=== PATIENT | female | born 1990 | race African-American/Black ===

== ENCOUNTER 2020-11-07 18:58 | Emergency (ER) | payer OTHER, SELFPAY ==
[2020-11-07 19:17] VITALS: BP 124/67; PULSE 72; RESP 18; TEMP 36.5; O2SAT 100
--- NOTE | 2020-11-07 19:18 | ED.EAR ---
HPI - Ear Problem General Chief complaint: Ear Stated complaint: Ear inf Time Seen by Provider: 11/07/20 19:18 Source: patient and RN notes reviewed Mode of arrival: ambulatory Limitations: no limitations History of Present Illness HPI Narrative: 30-year-old female presents to the [facility] with complaints of left ear pain since this am. Has not taken anything for symptoms. No nausea vomiting or diarrhea. No headaches. Related Data Home Medications Medication Instructions Recorded Confirmed citalopram 20 mg tablet 20 mg PO DAILY 05/12/19 11/07/20 Allergies Allergy/AdvReac Type Severity Reaction Status Date / Time No Known Allergies Allergy Unverified 05/10/17 17:11 Review of Systems Review of Systems: All systems reviewed & are unremarkable except as noted in HPI and below Constitutional: Constitutional: Reports no additional constitutional complaints, Denies chills and Denies fever(s) Eyes: Eyes: Reports no additional eye complaints and Denies change in vision ENT: Reports system reviewed and no additional complaints, except as documented, Reports as per HPI and Denies sore throat Comments: left ear pain Cardiovascular: Cardiovascular: Reports no additional cardiovascular complaints Respiratory: Respiratory: Reports no additional respiratory complaints Genitourinary: Genitourinary: Reports no additional female genitourinary complaints Musculoskeletal: Musculoskeletal: Reports no additional musculoskeletal complaints Integumentary/Breasts: Skin/Breast: Reports system reviewed and no additional complaints, except as docu Neurologic: Reports system reviewed and no additional complaints, except as documented Psychiatric: Psychiatric: Reports no additional psychiatric complaints Allergic/Immunologic: Allergic/Immunologic: Reports no additional allergic/immunologic complaints [facility] [place] Past Medical History Medical History Allergies Anxiety GERD (gastroesophageal reflux disease) History of frequent headaches Surgical History Surgical History Hx of removal of ovary Family History Family History Mother Depression Anxiety Father Hypertension Aneurysm Grandparent Breast cancer Sibling Bipolar affective disorder Anxiety Social History Social History Smoking status: Never smoker Alcohol intake: never Substance use: never Comments At the time of my signature, I reviewed and agree with the nursing past medical, surgical, social, and family history. There is no relevant family history pertinent to the patient complaint. Exam Const: General: healthy appearing, no acute distress and alert Nutritional Appearance: well nourished and obese Orientation/consciousness: patient oriented x3 Limitations: no limitations HENMT: Head: normal to inspection Ears: external ears abnormal, Abnormal EAC present erythema on the left and EAC tenderness on the left; no otic discharge and TM abnormal with fluid behind the TM on the left Face and sinus: sinuses nontender Mouth: Yes moist mucous membranes Eyes: Conjunctivae: conjunctivae normal Pupils: Equal, round and reactive pupils present Neck: Neck: normal visual inspection, no lymphadenopathy and no meningeal signs Chest: Chest palpation & inspection: normal inspection of the chest Resp: Effort & Inspection: normal respiratory effort and no use of accessory muscles Auscultation: clear to auscultation bilaterally, no crackles, no rales, no rhonchi and no wheezes Cardio: Rate: regular rate Rhythm: regular rhythm : General: Yes no CVA tenderness Back/Spine/Pelvis: Back: no CVA tenderness Skin: General skin exam: normal color Rashes: no rashes Wounds: no wounds Neuro: General: patient oriented x3, moves all extremities, no meningeal signs and no
== END 2020-11-07 19:28 | disposition home or self-care (01) ==
PROVIDERS: Emergency Provider Nurse Practitioner; PCP Family Medicine
DX: H60.502 Unspecified acute noninfective otitis externa, left ear (principal); T78.40XA Allergy, unspecified, initial encounter
CPT/HCPCS: 99213; G0463

== ENCOUNTER 2021-02-23 18:26 | Emergency (ER) | payer OTHER, SELFPAY ==
--- NOTE | 2021-02-23 18:31 | ED.URI ---
HPI - URI/Sore Throat General Chief Complaint: Upper Respiratory Infection Stated Complaint: Sinus Congestion/Sore Throat Time Seen by Provider: 02/23/21 18:32 Source: patient and RN notes reviewed History of Present Illness HPI Narrative: Patient is a 30-year-old female who presents the urgent care with complaints of sinus congestion, body aches and sore throat. States that symptoms started Sunday night. Patient states that she has been taking ibuprofen, Tylenol and Sudafed without much relief. Patient has been Covid vaccinated and denies of any recent exposures to Covid, flu or strep. Patient denies of any fever, chills, nausea or vomiting. No other acute complaints. No acute distress noted. Patient aware of the plan of care. Some parts of this dictation were generated by voice recognition software and may contain typographical and/or grammatical inaccuracies. Related Data Home Medications Medication Instructions Recorded Confirmed citalopram 20 mg tablet 20 mg PO DAILY 05/12/19 11/07/20 Allergies Allergy/AdvReac Type Severity Reaction Status Date / Time No Known Allergies Allergy Unverified 02/23/21 18:34 Review of Systems Review of Systems: CONSTITUTIONAL: Denies fever, chills, or sweats. EYES: Denies visual changes, redness, or discharge. ENT: Reports of postnasal drainage, sinus congestion and sore throat CARDIOVASCULAR: Denies chest pain, palpitations, or edema. RESPIRATORY: Denies cough or dyspnea. GASTROINTESTINAL: Denies abdominal pain, nausea, vomiting, or diarrhea. GENITOURINARY: Denies dysuria or hematuria. SKIN: Denies rash or itching. MUSCULOSKELETAL: Denies back pain, joint pain. Reports body aches NEUROLOGIC: Denies headache, numbness, or weakness. All other systems reviewed are negative, except as documented in HPI. [facility] Past Medical History Medical History Allergies Anxiety GERD (gastroesophageal reflux disease) History of frequent headaches Surgical History Surgical History Hx of removal of ovary Family History Family History Mother Depression Anxiety Father Hypertension Aneurysm Grandparent Breast cancer Sibling Bipolar affective disorder Anxiety Social History Social History (Reviewed 11/07/20 @ 19:25 by Tatiana Yen Smoking status: Never smoker Alcohol intake: never Substance use: never Comments At the time of my signature, I reviewed and agree with the nursing past medical, surgical, social, and family history. There is no relevant family history pertinent to the patient complaint. Exam Narrative: GENERAL: This is a well-nourished, well-developed patient, in no apparent distress. HEAD: normocephalic, atraumatic. EYES: PERRL. Sclera clear/white. Vision is grossly intact. Mild bilateral injected conjunctiva. EARS: External ears normal, auditory canals clear and without drainage, TMs normal without perforation. Hearing grossly intact. NOSE: External nose normal with no obvious nasal discharge, nares without redness, no rhinorrhea. THROAT: Mucous membranes moist. Mild erythema to posterior pharynx with moderate postnasal drainage. NECK: Neck supple, non-tender without lymphadenopathy CARDIOVASCULAR: Regular rate and rhythm without murmurs, gallops, or rubs. RESPIRATORY: Clear to auscultation. Breath sounds equal bilaterally. No wheezes, rales, or rhonchi. SKIN: warm, intact with no suspicious lesions or rash, good texture and turgor. NEURO: awake, alert, and oriented to person, place and time. There were no obvious focal neurologic abnormalities. EXTREMITIES: No clubbing, cyanosis, or edema. Course Course Level of Care: Express Care Visit Vital Signs Vital signs: Vital Signs Temperature 99.3 F 02/23/21 18:36 Pulse Rate 73 02/23/21 18:36 Respiratory Rate 20 02/23/21 18:36 Blood Pressure 146/
[2021-02-23 18:36] VITALS: BP 146/71; PULSE 73; RESP 20; TEMP 37.4; O2SAT 100
[2021-02-25 22:11] LABS: SARS-CoV-2 RNA PCR Negative
== END 2021-02-23 19:05 | disposition home or self-care (01) ==
PROVIDERS: Emergency Provider Nurse Practitioner Family; PCP Family Medicine
DX: J06.9 Acute upper respiratory infection, unspecified (principal); J02.9 Acute pharyngitis, unspecified; Z20.822 Contact with and (suspected) exposure to COVID-19; F41.9 Anxiety disorder, unspecified; K21.9 Gastro-esophageal reflux disease without esophagitis
CPT/HCPCS: 87081; 87880; 99213; C9803; G0463; U0003; U0005

== ENCOUNTER 2021-05-19 08:05 | Emergency (ER) | payer OTHER, SELFPAY ==
--- NOTE | 2021-05-19 08:16 | ED.URI ---
HPI - URI/Sore Throat General Chief Complaint: Upper Respiratory Infection Stated Complaint: Sore Throat Time Seen by Provider: 05/19/21 08:16 Source: patient and RN notes reviewed Mode of arrival: ambulatory Limitations: no limitations History of Present Illness HPI Narrative: 30-year-old female presented for complaint of sore throat for 2 days, worse yesterday. Endorses sinus congestion for 10 days. Endorses cough and postnasal drainage. She denies shortness of breath or wheezing, nausea, vomiting, diarrhea, fever or chills. Denies sick contacts. She is taking Mucinex, Sudafed, and daily Zyrtec. MD elicited complaint: cough Related Data Home Medications Medication Instructions Recorded Confirmed citalopram 20 mg tablet 20 mg PO DAILY 05/12/19 05/19/21 Allergies Allergy/AdvReac Type Severity Reaction Status Date / Time No Known Allergies Allergy Unverified 05/19/21 08:20 Review of Systems Review of Systems: CONSTITUTIONAL: denies malaise, chills, sweats, fever EYES: Denies visual changes, redness, or discharge ENT: Reports rhinorrhea, congestion, sinus pain, otalgia, sore throat CARDIOVASCULAR: Denies chest pain, palpitations, edema RESPIRATORY: Reports cough, post nasal drainage. Denies dyspnea GASTROINTESTINAL: Denies abdominal pain, nausea, vomiting, diarrhea SKIN: Denies rash or itching MUSCULOSKELETAL: Denies myalgia NEUROLOGIC: Denies headache PMFSH Past Medical History Medical History Allergies Anxiety GERD (gastroesophageal reflux disease) History of frequent headaches Surgical History Surgical History Hx of removal of ovary Family History Family History Mother Depression Anxiety Father Hypertension Aneurysm Grandparent Breast cancer Sibling Bipolar affective disorder Anxiety Social History Social History Smoking status: Never smoker Alcohol intake: never Substance use: never Exam Narrative: GENERAL: Ill-appearing, nontoxic HEAD: Normocephalic EYES: conjunctivae clear ENT: Mucous membranes moist. TM pearly valencia with dull light reflex bilaterally; no tragal tenderness. Oropharynx erythematous without lesions or exudate, no drooling, no hoarseness, no trismus, uvula midline. No tripod positioning, muffled voice, soft palate or pharyngeal wall bulging NECK: Supple. No lymphadenopathy CHEST: Clear to auscultation, breath sounds equal. No wheezing, rhonchi, rales, or stridor. No respiratory distress, speaks in full sentences. HEART: Regular rate and rhythm. No murmur heard. SKIN: Warm, dry, no rash. NEURO: Alert and oriented x3. PSYCH: Normal mood and affect Course Course Emergency Course: Patient is aware of diagnosis, understands and agrees to treatment plan. Anticipatory guidance given. Patient agrees to follow-up as directed and is aware of reasons to seek care at the emergency department. Portions of this record may have been created with voice recognition software Level of Care: Express Care Visit Vital Signs Vital signs: Vital Signs Temperature 98.0 F 05/19/21 08:21 Pulse Rate 87 05/19/21 08:21 Respiratory Rate 18 05/19/21 08:21 Blood Pressure 156/92 H 05/19/21 08:21 Pulse Oximetry 100 05/19/21 08:21 Temperature 98.0 F 05/19/21 08:21 Pulse Rate 87 05/19/21 08:21 Respiratory Rate 18 05/19/21 08:21 Blood Pressure 156/92 H 05/19/21 08:21 Pulse Oximetry 100 05/19/21 08:21 reviewed MDM - URI/Sore Throat MDM Narrative Medical decision making narrative: strep negative Sx c/w sinusitis, given 10 day hx of symptoms abx prescribed. she is appropriate for outpt treatment and f/u. Differential Diagnosis Differential diagnosis: Likely upper respiratory infection, sinusitis and viral infection Lab Data
[2021-05-19 08:21] VITALS: BP 156/92; PULSE 87; RESP 18; TEMP 36.7; O2SAT 100
== END 2021-05-19 08:38 | disposition home or self-care (01) ==
PROVIDERS: Emergency Provider Nurse Practitioner Family; PCP Family Medicine
DX: J06.9 Acute upper respiratory infection, unspecified (principal); K21.9 Gastro-esophageal reflux disease without esophagitis; F41.9 Anxiety disorder, unspecified
CPT/HCPCS: 87081; 87880; 99213; G0463

== ENCOUNTER 2022-11-13 11:21 | Emergency (ER) | payer OTHER, SELFPAY ==
[2022-11-13 11:27] VITALS: BP 126/81; PULSE 70; RESP 20; TEMP 36.7; O2SAT 100
--- NOTE | 2022-11-13 11:47 | ED.GENADULT ---
HPI - General Adult General Chief complaint: Ear Stated complaint: ears Time Seen by Provider: 11/13/22 11:47 Source: patient, RN notes reviewed and old records reviewed Mode of arrival: ambulatory Limitations: no limitations History of Present Illness HPI narrative: 32-year-old female presents to the [facility] with complaints of bilateral ear pain. States that a week ago started in her right ear. On Sunday the left ear started feeling painful, bilateral muffling, pressure and pain. Denies any sinus congestion. Has been taking an allergy medication every day, Benadryl, Tylenol and ibuprofen. Onset (ago): week(s) (1) Related Data Home Medications Medication Instructions Recorded Confirmed venlafaxine 25 mg tablet 25 mg PO BID 11/13/22 11/13/22 Allergies Allergy/AdvReac Type Severity Reaction Status Date / Time No Known Allergies Allergy Verified 11/13/22 11:35 Review of Systems Review of Systems: All systems reviewed & are unremarkable except as noted in HPI and below Constitutional: Constitutional: Reports no additional constitutional complaints Eyes: Eyes: Reports no additional eye complaints ENT: Reports as per HPI Cardiovascular: Cardiovascular: Reports no additional cardiovascular complaints, Denies chest pain and Denies dyspnea Respiratory: Respiratory: Reports no additional respiratory complaints, Denies chest congestion, Denies cough and Denies dyspnea Gastrointestinal: Gastrointestinal: Reports no additional gastrointestinal complaints, Denies abdominal pain, Denies nausea and Denies vomiting Musculoskeletal: Musculoskeletal: Reports no additional musculoskeletal complaints Integumentary/Breasts: Skin/Breast: Reports system reviewed and no additional complaints, except as docu Neurologic: Reports system reviewed and no additional complaints, except as documented Psychiatric: Psychiatric: Reports no additional psychiatric complaints Allergic/Immunologic: Allergic/Immunologic: Reports no additional allergic/immunologic complaints [facility] Past Medical History Medical History Allergies Anxiety GERD (gastroesophageal reflux disease) History of frequent headaches Surgical History Surgical History Hx of removal of ovary Family History Family History Mother Depression Anxiety Father Hypertension Aneurysm Grandparent Breast cancer Sibling Bipolar affective disorder Anxiety Social History Social History Smoking status: Never smoker Alcohol intake: never Substance use: never Comments At the time of my signature, I reviewed and agree with the nursing past medical, surgical, social, and family history. There is no relevant family history pertinent to the patient complaint. Exam Const: General: cooperative, healthy appearing, comfortable, no acute distress, well developed, alert and well nourished Nutritional Appearance: well nourished Orientation/consciousness: patient oriented x3 Limitations: no limitations HENMT: Head: normal to inspection Ears: hearing grossly normal bilaterally, external ears normal, TM normal on the right, Abnormal EAC present erythema bilateral and edema bilateral and TM abnormal bulging and erythematous on the right Face/Nose/Sinus: Normal external nose present, Normal nares present, Normal nasal mucous membranes and turbinates present, normal facial exam and face symmetric Face and sinus: normal facial exam and face symmetric Mouth: Yes Normal oral and palatal mucosa present, Yes lip normal and Yes moist mucous membranes Throat: posterior oropharynx normal, uvula midline and postnasal drainage Eyes: General: appearance normal, both eyes and all related structures Alignment and Position: alignment normal Periorbital: periorbital f
== END 2022-11-13 12:00 | disposition home or self-care (01) ==
PROVIDERS: Emergency Provider Nurse Practitioner; PCP Family Medicine
DX: H66.91 Otitis media, unspecified, right ear (principal); H60.503 Unspecified acute noninfective otitis externa, bilateral
CPT/HCPCS: 99213; G0463

== ENCOUNTER 2023-09-11 13:54 | Emergency (ER) | payer OTHER, SELFPAY ==
--- NOTE | ~2023-09-11 | XR_ITS ---
XR abdomen/kub 1V 09/11/2023 14:44 Indication: Flank pain Procedure: KUB Comparison: No prior studies for comparison. Findings: There are bilateral renal stones measuring 3 mm or less. Bowel pattern is nonobstructive. M oderate colonic fecal loading. No acute osseous abnormality. Impression: 1: Bilateral nephrolithiasis. Reviewed, dictated and finalized at location B. Impression: 1: Bilateral nephrolithiasis.
--- NOTE | 2023-09-11 13:58 | ED.GENADULT ---
HPI - General Adult General Chief complaint: Urogenital-Female Stated complaint: Lower Abdo and back pain Time Seen by Provider: 09/11/23 14:30 Source: patient and RN notes reviewed Mode of arrival: ambulatory Limitations: no limitations History of Present Illness HPI narrative: 32-year-old female presents with concern for to 3 day history of left low back and abdomen pain. She reports she may have a UTI, she noticed some hematuria while wiping. She reports mild nausea without vomiting. She denies diarrhea. She reports pain is worse when she moves certain ways, however she reports the pain is not similar to generalized low back pain that she gets. She denies fever. She denies chance of MD complaint: Low back pain Related Data Home Medications Medication Instructions Recorded Confirmed lamotrigine 25 mg tablet 50 mg PO DAILY 09/11/23 09/11/23 venlafaxine 75 mg capsule,extended 150 mg PO DAILY 09/11/23 09/11/23 release 24 hr Allergies Allergy/AdvReac Type Severity Reaction Status Date / Time No Known Allergies Allergy Verified 09/11/23 14:06 Review of Systems Review of Systems: CONSTITUTIONAL: Denies malaise, chills, sweats, or fever. CARDIOVASCULAR: Denies chest pain, palpitations, or edema. RESPIRATORY: Denies cough or dyspnea. GASTROINTESTINAL: Denies abdominal pain, vomiting, diarrhea. Reports mild nausea GENITOURINARY: Denies dysuria, frequency, urgency, suprapubic pressure. Reports left flank pain, hematuria. SKIN: Denies rash or itching. MUSCULOSKELETAL: Reports left low back pain. Denies myalgia. All systems reviewed & are unremarkable except as noted in HPI and below [facility] Past Medical History Medical History Allergies Anxiety GERD (gastroesophageal reflux disease) History of frequent headaches Surgical History Surgical History Hx of removal of ovary Family History Family History Mother Depression Anxiety Father Hypertension Aneurysm Grandparent Breast cancer Sibling Bipolar affective disorder Anxiety Social History Social History Smoking status: Never smoker Alcohol intake: never Substance use: never Comments At time of signature, agree with nursing past medical, surgical, social and family history. There is no relevant family history pertinent to the presenting complaint Exam Narrative: GENERAL: Well-appearing, well-nourished, and in no acute distress. HEAD: Normocephalic. EYES: PERRLA, conjunctivae clear. NECK: Supple. No lymphadenopathy CHEST: Clear to auscultation. No respiratory distress. HEART: Regular rate and rhythm. ABDOMEN: Soft, nontender upon palpation, nondistended, normal active bowel sounds, no palpable or pulsatile masses, no guarding. No CVA tenderness SKIN: Warm, dry, no rash. NEURO: Alert and oriented x3. PSYCH: Normal mood and affect Course Course Emergency Course: Patient is aware of diagnosis, understands and agrees to treatment plan. Anticipatory guidance given. Patient agrees to follow-up as directed and is aware of reasons to seek care at the emergency department. Portions of this record may have been created with voice recognition software Level of Care: Express Care Visit Vital Signs Vital signs: Reviewed. Medical Decision Making MDM Narrative Medical decision making narrative: I evaluated this patient in the express care. History is obtained from patient who is an independent historian and physical exam was performed.? Available medical records were reviewed. ? Exam findings and relevant testing show no acute concerns or changes; patient is non-toxic appearing and is in no distress. ? Differential diagnosis and treatment plan were discussed with the patient. Patient agrees with dis
[2023-09-11 14:04] VITALS: BP 134/75; PULSE 89; RESP 20; TEMP 36.6; O2SAT 100
[2023-09-11 14:23] LABS: EDUAAPPEAR Clear; EDUABILI Negative; EDUABLOOD Trace; EDUACOLOR1 Yellow; EDUAGLUCOSE Negative; EDUAKETONE Negative; EDUALEUKO Negative; EDUANITRATE Negative; EDUAPROTEIN Negative; EDUASPGRAVITY 1.015; EDUAUROBILI 0.2
== END 2023-09-11 15:15 | disposition home or self-care (01) ==
PROVIDERS: Emergency Provider Nurse Practitioner
DX: N20.0 Calculus of kidney (principal); K21.9 Gastro-esophageal reflux disease without esophagitis; F41.9 Anxiety disorder, unspecified
CPT/HCPCS: 74018; 81003; 87086; 87088; 99213; G0463

== ENCOUNTER 2023-10-13 09:55 | Emergency (ER) | payer OTHER, SELFPAY ==
--- NOTE | ~2023-10-13 | XR_ITS ---
EXAMINATION: XR abdomen/kub 1V DATE: 10/13/2023 10:53 INDICATION: Kidney stones. TECHNIQUE: A supine view of the abdomen on 4 radiographs was obtained. COMPARISON: Abdomen radiographs 09/11/2023 FINDINGS: There are no dilated loops of bowel. There is in the pelvis. There are approximately 4 ston es in left kidney measuring up to 3 mm. There is a 3 mm stone in right kidney. IMPRESSION: 1. Bilateral kidney stones. Reviewed, dictated and finalized at location A. IMPRESSION: 1. Bilateral kidney stones.
[2023-10-13 10:00] VITALS: BP 124/74; PULSE 97; RESP 18; TEMP 36.7; O2SAT 99
--- NOTE | 2023-10-13 10:20 | ED.FEMALEGU ---
HPI - Female Genitourinary General Chief complaint: Urogenital-Female Stated complaint: Poss kidney stone Time Seen by Provider: 10/13/23 10:20 Source: patient, RN notes reviewed and old records reviewed Mode of arrival: ambulatory Limitations: no limitations History of Present Illness HPI Narrative: 33 year old female presents to [facility] care with complaints of left flank pain which began yesterday. Patient reports that she was seen in the clinic one month ago and diagnosed with kidney stones which were found on KUB (x-ray). Patient reports that around the 23 of September she had episode of severe right flank pain and thought she had passed a stone and then pain resolved. Patient reports no fevers or any burning or pain with urination., denies any abdominal pain,fevers or any nausea or vomiting.Patient reports that she did not follow up with a urologist after last visit. MD elicited complaint: UTI and other (left flank pain) Pertinent past history: other (kidney stone noted on X-ray/KUB 09/11/2023) Onset (ago): day(s) (increased pain since yesterday) Location of symptoms: flank (left) Severity: severe Severity scale (1-10): 8 Treatment prior to arrival: none Related Data Home Medications Medication Instructions Recorded Confirmed lamotrigine 25 mg tablet 50 mg PO DAILY 09/11/23 10/13/23 venlafaxine 75 mg capsule,extended 150 mg PO DAILY 09/11/23 10/13/23 release 24 hr Allergies Allergy/AdvReac Type Severity Reaction Status Date / Time No Known Allergies Allergy Verified 10/13/23 10:16 Review of Systems Review of Systems: CONSTITUTIONAL: Denies fever, chills, or sweats. CARDIOVASCULAR: Denies chest pain, palpitations, or edema. RESPIRATORY: Denies cough or dyspnea. GASTROINTESTINAL: Denies abdominal pain, nausea, vomiting, or diarrhea. GENITOURINARY: Reports no dysuria, frequency, urgency.Reports left flank pain , no visible hematuria. SKIN: Denies rash or itching. MUSCULOSKELETAL: Denies back pain or myalgia. Reports left CVA pain NEUROLOGIC: Denies headache All systems reviewed & are unremarkable except as noted in HPI and below PMFSH Past Medical History Medical History Allergies Anxiety GERD (gastroesophageal reflux disease) History of frequent headaches Nephrolithiasis Surgical History Surgical History Hx of removal of ovary Family History Family History Mother Depression Anxiety Father Hypertension Aneurysm Grandparent Breast cancer Sibling Bipolar affective disorder Anxiety Social History Social History Smoking status: Never smoker Alcohol intake: never Substance use: never Comments At time of signature, agree with nursing past medical, surgical, social and family history. There is no relevant family history pertinent to the presenting complaint Exam Narrative: GENERAL: Well-appearing, well-nourished, and in no acute distress. HEAD: Normocephalic, atraumatic. NECK: Supple.no lymphadenopathy CHEST: Clear to auscultation. No respiratory distress.SAO2 99% on room air HEART: Regular rate and rhythm. No murmur heard. Normal peripheral pulses. ABDOMEN: Soft, nontender, nondistended, normal active bowel sounds. left CVA tenderness EXTREMITIES: Normal range of motion. No edema. SKIN: Warm, dry, no rash. NEURO: No focal deficits. Alert and oriented x3. Course Course Emergency Course: Patient is aware of diagnosis, understands and agrees to treatment plan.? Anticipatory guidance given.? Patient agrees to follow-up as directed and is aware of reasons to seek care at the emergency department. Portions of this record may have been created with voice recognition software Level of Care: Express Care Visit Vital Signs Vital signs: Vital Signs Te
[2023-10-13 10:27] LABS: EDUAAPPEAR Clear; EDUABILI Negative; EDUABLOOD 2+; EDUACOLOR1 Yellow; EDUAGLUCOSE Negative; EDUAKETONE Negative; EDUALEUKO Negative; EDUANITRATE Negative; EDUAPH 6.5; EDUAPROTEIN Negative; EDUAUROBILI 0.2
[2023-10-13 11:03] LABS: BEDSIDEPREGUCG Negative
== END 2023-10-13 11:45 | disposition home or self-care (01) ==
PROVIDERS: Emergency Provider Registered Nurse
DX: N20.0 Calculus of kidney (principal); K21.9 Gastro-esophageal reflux disease without esophagitis; F41.9 Anxiety disorder, unspecified
CPT/HCPCS: 74018; 81003; 81025; 87086; 99213; G0463

== ENCOUNTER 2024-04-01 14:46 | Emergency (ER) | payer OTHER, SELFPAY ==
[2024-04-01 14:51] VITALS: BP 134/62; PULSE 135; RESP 28; TEMP 37; O2SAT 99
--- NOTE | 2024-04-01 14:53 | ED.URI ---
HPI - URI/Sore Throat General Chief Complaint: Upper Respiratory Infection Stated Complaint: Shortness of Breath/Cough Time Seen by Provider: 04/01/24 15:07 Source: patient and RN notes reviewed Mode of arrival: ambulatory Limitations: no limitations History of Present Illness HPI Narrative: 33-year-old female who is 24 weeks presents with concern for dry cough, body aches, feeling of not being able to catch her breath. Reports symptoms started yesterday. She denies any chest pain. MD elicited complaint: cough Related Data Home Medications ?Medication ?Instructions ?Recorded ?Confirmed ?Last Taken ?Type lamotrigine 25 mg tablet 50 mg PO DAILY 09/11/23 04/01/24 Unknown History venlafaxine 75 mg capsule,extended 150 mg PO DAILY 09/11/23 04/01/24 Unknown History release 24 hr 04/01/24 Unknown History Allergies Allergy/AdvReac Type Severity Reaction Status Date / Time No Known Allergies Allergy Verified 04/01/24 14:47 Review of Systems Review of Systems: CONSTITUTIONAL: Reports malaise. Denies chills, sweats, fever EYES: Denies visual changes, redness, or discharge ENT: Denies rhinorrhea, congestion, sinus pain, otalgia, sore throat CARDIOVASCULAR: Denies chest pain, palpitations, edema RESPIRATORY: Reports cough, feeling of not really catch her breath during exertion. Denies dyspnea GASTROINTESTINAL: Denies abdominal pain, nausea, vomiting, diarrhea SKIN: Denies rash or itching MUSCULOSKELETAL: Reports myalgia NEUROLOGIC: Denies headache PMFSH Past Medical History Medical History Allergies Anxiety GERD (gastroesophageal reflux disease) History of frequent headaches Nephrolithiasis Surgical History Surgical History Hx of removal of ovary Family History Family History Mother Depression Anxiety Father Hypertension Aneurysm Grandparent Breast cancer Sibling Bipolar affective disorder Anxiety Social History Social History Smoking status: Never smoker Alcohol intake: never Substance use: never Exam Narrative: GENERAL: Nontoxic-appearing, well-nourished, and in no acute distress. HEAD: Normocephalic EYES: PERRLA, conjunctivae clear ENT: Nares clear. Mucous membranes moist. TM pearly valencia with sharp light reflex bilaterally; no tragal tenderness. Oropharynx erythematous without lesions. Tonsils enlarged and without exudate, no drooling, no hoarseness, no trismus, uvula midline. NECK: Supple. No lymphadenopathy CHEST: Clear to auscultation, breath sounds equal. No wheezing, rhonchi, rales, or stridor. No respiratory distress, speaks in full sentences. HEART: Regular rate and rhythm. No murmur heard. SKIN: Warm, dry, no rash. NEURO: Alert and oriented x3. PSYCH: Normal mood and affect Course Course Emergency Course: Patient is aware of diagnosis, understands and agrees to treatment plan. Anticipatory guidance given. Patient agrees to follow-up as directed and is aware of reasons to seek care at the emergency department. Portions of this record may have been created with voice recognition software Level of Care: Express Care Visit Vital Signs Vital signs: reviewed MDM - URI/Sore Throat MDM Narrative Medical decision making narrative: Differential diagnosis considered: Dumont virus, strep pharyngitis, allergic rhinitis, upper respiratory tract infection, sinusitis, rhinosinusitis, nasopharyngitis. viral pharyngitis, otitis media, otitis externa, pneumonia, bronchitis, viral cough syndrome, viral syndrome, and influenza. Exam findings show no acute concerns or changes; patient is non-toxic appearing and is in no distress. Patient is appropriate for outpatient treatment and follow-up. Differential Diagnosis Differential diagnosis: Likely upper respiratory infection, sinusitis and viral infection Lab Data Attestation: I reviewed the patient's lab results. Discharge Plan Discharge Clinical Impression: Upper respiratory infection Patient Disposition: Home, Self-Care Condition: Stable Instructions: How to Use a Metered-Dose Inhaler (ED) Additional Instructions: Viral illness may last between 7-21 days; antibiotics do not cure viral illness and are NOT recommended at this time. Use inhaler as needed for cough, wheezing, shortness of breath or chest tightness. Also, recommend symptomatic treatment includes: rest, fluids, and increase humidity of the air at home. Recommend Acetaminophen as directed on the bottle to reduce fever, pain, headache. Avoid smoking/second-hand smoke. Please schedule a follow-up visit with your personal physician for further evaluation and treatment within 3-5days. If your symptoms persist, change or worsen significantly before you can contact your personal physician then please, without delay, go to the emergency department for further evaluation. Patient Language: Lithuanian Prescriptions: New albuterol sulfate 90 mcg/actuation HFA aerosol inhaler 2 puff INHALATION QID PRN (Reason: shortness of breath or wheezing) Qty: 8.5 0RF No Action lamotrigine 25 mg tablet 50 mg PO DAILY venlafaxine 75 mg capsule,extended release 24hr 150 mg PO DAILY Follow-up/Referrals: PHYSICIAN NOT ON STAFF,NONSTAFF [Primary Care Provider] - Stand Alone Forms: Work/School Release IP Time of Disposition: 15:31
[2024-04-01 15:23] LABS: EDCOVIDSCREEN Negative (Negative); EDINFLUASCREEN Negative (Negative); EDINFLUBSCREEN Negative (Negative)
--- OUTSIDE RECORDS SUMMARY | 2024-04-01 15:27 | XMS_ITS | Referral Summary ---
Author Organization [facility] Address [address] [place] [address] Care Team Providers Care Head Sampler Name Role Phone Marcy Ho DO Primary Care Provider [phone] Encounters Date Type Department Care Team Description 04/01/2024 11:20 AM SCENIC DESIGNER Office Visit [facility] Maternal- Medicine [address] [place] [address] Outpatient Health 7th Floor [address] [place] [address] Anxiety and depression (Primary Dx); BMI 53; Dichorionic diamniotic twin , antepartum; History of pulmonary hypertension; Rh negative state in antepartum period; Supervision of high-risk , second trimester 04/01/2024 9:36 AM SCENIC DESIGNER Hospital Encounter [facility] - Ultrasound [address] [place] [address], 7th Floor, [address] [facility] [place] [address] History of pulmonary hypertension; Dichorionic diamniotic twin , antepartum; Supervision of high-risk , second trimester; Anxiety and depression 03/06/2024 9:30 AM SCENIC DESIGNER Office Visit [facility] [address] [place] [address] Juanis Arita MD care, subsequent in second trimester (Primary Dx); Dichorionic diamniotic twin , antepartum 03/04/2024 Telephone [facility] [address] [place] [phone] Mireya Mitchell LPN 03/04/2024 Telephone [facility] Health [address] [facility] [address] [place] [address] Jayesh Murillo MD 03/03/2024 12:34 PM SCENIC DESIGNER - 03/03/2024 11:59 PM SCENIC DESIGNER Hospital Encounter [facility] [address] [place] [address] Screening for malignant neoplasm of the cervix; care, subsequent , first trimester Discharge Disposition: Discharge to home or self care 03/03/2024 12:35 PM SCENIC DESIGNER Lab [address] [address] History of pulmonary hypertension; Dichorionic diamniotic twin , antepartum; Supervision of high-risk , second trimester; Anxiety and depression 03/03/2024 11:30 AM SCENIC DESIGNER Clinical Support [facility] [address] [place] [address] [address] [place] [address] 03/03/2024 11:15 AM SCENIC DESIGNER Office Visit [facility] [address] [place] [address] 7th [facility] [address] [place] [address] History of pulmonary hypertension (Primary Dx); Dichorionic diamniotic twin , antepartum; BMI 53; Rh negative state in antepartum period; Supervision of high-risk , second trimester; Anxiety and depression 03/03/2024 9:00 AM SCENIC DESIGNER - 03/03/2024 11:59 PM SCENIC DESIGNER Hospital Encounter [facility] - Ultrasound [address] [place] [address], [address] [place] [address], [address] [place] [address] Twin gestation in first trimester, unspecified multiple gestation type; History of pulmonary hypertension; Supervision of high-risk , first trimester Discharge Disposition: Discharge to home or self care 02/21/2024 Telephone [facility] [address] [facility] [address] [place] [address] Jayesh Murillo MD Med Refill (Venlafaxine ER & Lamictal ) 02/21/2024 Telephone [facility] [address] [facility] [address] [place] [phone] Jayesh Murillo MD 02/06/2024 Orders Only [facility] [address] [place] [address] Juanis Arita MD History of pulmonary hypertension (Primary Dx) 02/06/2024 11:00 AM SCENIC DESIGNER Ancillary Procedure [facility] [address] [place] [address] Twin gestation in first trimester, unspecified multiple gestation type; 17 weeks gestation of 02/06/2024 10:00 AM SCENIC DESIGNER Ancillary Procedure [facility] [address] [facility] [address] [place] [address] Twin gestation in first trimester, unspecified multiple gestation type; 17 weeks gestation of 02/06/2024 11:45 AM SCENIC DESIGNER Office Visit [facility] [address] [place] [address] Juanis Arita MD care, subsequent in second trimester (Primary Dx); Dichorionic diamniotic twin , antepartum 01/15/2024 Orders Only [facility] [address] [place] [phone] Juanis Arita MD Twin gestation in first trimester, unspecified multiple gestation type (Primary Dx); 17 weeks gestation of ; Maternal care for suspected chromosomal abnormality in fetus, single or unspecified fetus; Obesity affecting in second trimester, unspecified obesity type 01/15/2024 11:15 AM SCENIC DESIGNER Routine [facility] [address] [place] [phone] Juanis Arita MD care, subsequent , first trimester (Primary Dx); Dichorionic diamniotic twin , antepartum 01/09/2024 7:00 AM SCENIC DESIGNER - 01/09/2024 11:59 PM SCENIC DESIGNER Hospital Encounter [facility] [address] [facility] 8th [place] [address] Twin gestation in first trimester, unspecified multiple gestation type; History of pulmonary hypertension; Supervision of high-risk , first trimester Discharge Disposition: Discharge to home or self care 12/31/2023 10:30 AM SCENIC DESIGNER Office Visit [facility] [address] [facility] Outpatient Health 7th Floor [address] [place] [phone] Supervision of high-risk , first trimester (Primary Dx); Twin gestation in first trimester, unspecified multiple gestation type; History of pulmonary hypertension 12/31/2023 9:17 AM SCENIC DESIGNER - 12/31/2023 11:59 PM SCENIC DESIGNER Hospital Encounter [facility] [address] [facility], 7th Floor, [address] [place] [address] Supervision of high-risk , unspecified trimester Discharge Disposition: Discharge to home or self care from Last 3 Months Allergies No known active allergies Medications PNV no.95/ferrous fum/folic ac ( ORAL) Take by mouth Active venlafaxine XR (EFFEXOR-XR) 75 mg 24 hr capsuleIndicati ons:Anxiety with Depression,Gene ralized Anxiety Disorder Take 2 capsules (150 mg total) by mouth daily 60 capsule 5 Active lamoTRIgine (LaMICtal) 25 mg tablet Take 2 tablets (50 mg total) by mouth daily 60 tablet 5 Active venlafaxine XR (EFFEXOR-XR) 75 mg 24 hr capsule TAKE 2 CAPSULES BY MOUTH ONCE DAILY WITH BREAKFAST 60 capsule 5 04/01/19 25 Discontinu ed(Therapy completed) Active Problems Problem Noted Date Diagnosed Date BMI 53 12/24/2023 Overview (04/01/2024): History & Counseling Pre- BMI: 53 Previously counseled by [facility] Recommendations [x] Early A1C - 5.1% [x] Baseline PIH labs - Cr 0.58, AST 17, ALT 13, UPC 0.0953 (03/03/2024) [x] Anatomy/growths per twins [] Anesthesia consult in third trimester if planned delivery at [facility] for any reason [] Weekly testing starting at 34 weeks given BMI of 40+ Assessment & Plan (03/03/2024 5:15 PM SCENIC DESIGNER): Anatomy ultrasound today with AGA growth of both fetuses with all visualized anatomy wnl. Recommendations [x] Early A1C - 5.1% [] Baseline PIH labs - CMP, UPC ordered 03/03/2024 [] Anatomy/growths per twins [] Anesthesia consult in third trimester if planned delivery at [facility] for any reason [] Weekly testing starting at 34 weeks given BMI of 40+ Supervision of high-risk , second trime ster 12/24/2023 Overview (04/01/2024): [x] Co-management [x] Blue Team Referring Provider: Juanis Arita [phone] [] or Medicare Insurance [x] Dating Criteria: LMP 10/13/23 with OCTAVIO 07/19/24 [x] Labs: Rh [A-], Ab [negative], Rubella [immune], HIV [non-reactive], HepBSAg [non-reactive], HepBCAb [not done], HepBSAb [not done], RPR [non- reactive], Hep C [non-reactive], Varicella [positive], GC/CT [negative/negative] [] Aneuploidy: NIPT drawn at primary, did not result due to sample error - pt plans to have redrawn [] Carrier Screening: [x] CBC/Hgb: 11.4/34.4/plt 266 [x] 1st trimester A1C: 5.1% [x] UCx: 12/19/23: negative [x] Pap: 12/19/23: NILM; HPV negative [] Flu Shot (Oct-Jan): [] COVID [x] LD ASA (if indicated) [] EPDS [ ]; PNBHS referral (if indicated) 2nd Trimester [x] Anatomy ultrasound [] CBC/1hr gtt at 24-28wks: discussed [] Tdap (27-36wks): [] Rhogam at 28 wks (if Rh neg): indicated 3rd Trimester Labs and delivery with primary OB. Currently recommend delivery 38 weeks for Heath twins. Recommend monthly growth US and MFM visits Recommend weekly testing at 34 weeks. Assessment & Plan (03/03/2024 5:11 PM SCENIC DESIGNER): [x] Co-management vs. [] Full MFM Care; [] Red Team [x] Blue Team Referring Provider: Juanis Arita [phone] [] or Medicare Insurance [x] Dating Criteria: LMP 10/13/23 with OCTAVIO 07/19/24 [x] Labs: Rh [A-], Ab [negative], Rubella [immune], HIV [non-reactive], HepBSAg [non-reactive], RPR [non-reactive], Hep C [non-reactive], Varicella [positive], GC/CT [negative/negative] [] Aneuploidy: NIPT drawn at primary, did not result due to sample error - recommend discussion with primary OB regarding next steps if desires re-draw or if wants genetic counseling referral [] Carrier Screening: [x] CBC/Hgb: 11.4/34.4/plt 266 [x] 1st trimester A1C: 5.1% [x] UCx: 12/19/23: negative [x] Pap: 12/19/23: NILM; HPV negative [] Flu Shot (Oct-Jan): [] COVID [x] LD ASA (if indicated) [] EPDS [ ]; PNBHS referral (if indicated) 2nd Trimester [x] Anatomy ultrasound: visualized anatomy wnl, official report not available, anatomy completion scheduled 2 wks [] CBC/1hr gtt at 24-28wks: [] Tdap (27-36wks): [] Rhogam at 28 wks (if Rh neg): indicated Rh negative state in antepartum period 4 Overview (03/02/2024): History & Counseling Small volume bleeding at 11 weeks (resolved 12/31/23). Discussed if bleeding after 12 weeks, recommend Rhogam administration. Recommendations - Rhogam at 28 weeks and for a post-delivery Rh workup Assessment & Plan (03/03/2024 3:23 PM SCENIC DESIGNER): Recommendations - Rhogam at 28 weeks and for a post-delivery Rh workup History of pulmonary hypertension 12/21/2023 Overview (03/03/2024): History & Counseling - Readmitted one week in 2013 for chest pain, SOB, pulmonary edema with 3+ lower extremity edema. Echo at that time with EF 60%, moderate pulmonary HTN (estimated PASP 50-54). BNP 662. - Per cardiology documentation, recommended pulmonary hypertension be reassessed after relief of pulmonary edema. Tramaine has not had cardiology follow-up/echocardiograms since that point. She reports an excellent functional status, able to walk long distances and climb steps. - Differential for this event includes pre-eclampsia with severe features by pulmonary edema vs. Peripartum cardiomyopathy, though this is less likely with normal EF. - Previously counseled by [facility] Recommendations [x] EKG, okay to defer given echo wnl [x] Maternal echo: normal on 01/09/2024, no further work up needed [x] Further counseling and consideration of cardiology consultation if cardiac diagnosis is made on echo - NA Assessment & Plan (03/03/2024 5:12 PM SCENIC DESIGNER): History & Counseling - Readmitted one week in 2013 for chest pain, SOB, pulmonary edema with 3+ lower extremity edema. Echo at that time with EF 60%, moderate pulmonary HTN (estimated PASP 50-54). BNP 662. - Per cardiology documentation, recommended pulmonary hypertension be reassessed after relief of pulmonary edema. Tramaine has not had cardiology follow-up/echocardiograms since that point. She reports an excellent functional status, able to walk long distances and climb steps. - Differential for this event includes pre-eclampsia with severe features by pulmonary edema vs. Peripartum cardiomyopathy, though this is less likely with normal EF. - Previously counseled by [facility] Recommendations [x] EKG, okay to defer given echo wnl [x] Maternal echo: normal on 01/09/2024, no further work up needed [x] Further counseling and consideration of cardiology consultation if cardiac diagnosis is made on echo - NA Dichorionic diamniotic twin , antepartu m 12/21/2023 Overview (04/01/2024): History & Counseling Previously counseled 12/31/23 Recommendations [x] Aspirin 81mg per day for preeclampsia prevention starting at 12 weeks gestation [x] Specialized anatomic survey with cervical length [] Serial growth ultrasounds every 4 weeks starting at 24 weeks- ongoing [] testing at 34 weeks per BMI [] Delivery by [id number] or earlier if indicated Assessment & Plan (03/03/2024 3:32 PM SCENIC DESIGNER): Anatomy ultrasound today with AGA growth of both fetuses with all visualized anatomy wnl. Recommendations [x] Aspirin 81mg per day for preeclampsia prevention starting at 12 weeks gestation [] Specialized anatomic survey with cervical length - visualized anatomy wnl 03/03/24, anatomy completion scheduled 2wks [] Serial growth ultrasounds every 4 weeks starting at 24 weeks, to be scheduled [] testing at 34 weeks per BMI [] Delivery by [id number] or earlier if indicated Anxiety and depression 12/21/2023 Overview (03/03/2024): History & Counseling Followed by psychiatrist, Dr. Murillo Previously counseled by [facility] Current medication regimen: Effexor 150mg daily, Lamictal 50mg daily Recommendations - Monitor mood every visit - Follow-up with Dr. Murillo scheduled 03/21/24 Assessment & Plan (03/03/2024 3:33 PM SCENIC DESIGNER): EPDS 3 today. Improved mood in second trimester. Continuing on Effexor and Lamictal. Recommendations - Monitor mood every visit - Follow-up with Dr. Murillo scheduled 03/21/24 Unspecified mood (affective) disorder 07/28/2022 Estimated Date of Delivery Comme nts Yes 07/19/2024 Based on last me nstrual period of 10/13/2023 (Exact Date) Resolved Problems Problem Noted Date Diagnosed Date Resolved Date LLQ abdominal pain 05/23/2022 Assessment & Plan (05/24/2022 11:28 AM CDT): No acute abdomen. Labs ordered, Xrays ordered. Will follow. Depression 09/12/2021 12/21/2023 Obese 05/27/2019 05/17/2020 Seasonal allergies 05/27/2019 Assessment & Plan (05/27/2019 8:04 PM CDT): Stable. Cont. Current meds. Generalized anxiety disorder 09/18/2018 12/21/2023 Assessment & Plan (12/24/2020 1:59 PM CDT): Continue current prescription medications. Referred to psychiatry for further evaluation management. Assessment & Plan (05/17/2020 2:57 PM CDT): Clinically improved, continue current meds. Assessment & Plan (05/27/2019 8:04 PM CDT): Stable. Cont. Current meds. 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 Assessment & Plan (05/17/2020 2:57 PM CDT): Weight reduction, daily exercise and dietary modifications recommended. Assessment & Plan (05/27/2019 8:04 PM CDT): Weight reduction, daily exercise and dietary modifications recommended. Hypersomnia 11/20/2016 05/17/2020 Obstructive sleep apnea syndrome 11/20/2016 05/17/2020 Low back pain 10/31/2016 12/27/2023 Assessment & Plan (05/17/2020 3:00 PM CDT): Her for placed for pain management. Long discussion about weight reduction, stretching exercise was conducted today. Patient is aware that she should attempt to make dietary modifications, increase daily exercise and reduce weight in order to help with the lower back pain. Immunizations Name Administration Dates Next Due DTP 11/21/1994, 3,06/04/1991,02/10,1990 Hep B, Adolescent or Pediatric 03/29/2001,2000,08/30/2000 HiB 06/04/1991,02/10/1991,1990 Influenza, Quadrivalent, Spl it, Intramuscular 01/14/2018,12/07/2016,02/22/2015 Influenza, Quadrivalent, Spl it, Preservative Free, Intramuscular 11/17/2021,12/23/2020 Influenza, Unspecified 11/20/2019(Deferred: Maryan ent Refused) MMR 07/06/1994,05/25/1992 OPV 11/21/1994, 3,02/10/1991,12/04 Pfizer SARS-CoV-2 Monovalent Vaccination (12+ Yrs) PURPLE 07/16/2020,06/25/2020 Td, adsorbed 08/03/2004 Tdap 02/23/2015 Social History Tobacco Use Types Packs/Day Years Used Date Smoking Tobacco: Never Smokeless Tobacco: Never Tobacco Cessation:Counseling Given: Not Answered Alcohol Use Standard Drinks/Week Comments No 0 (1 standard drink = 0.6 oz pur e alcohol) Overall Financial Resource Strain (CARDIA) Answe r Date Recorded How hard is it for you to pa y for the very basics like food, housing, medical care, and heating? Somewhat hard 01/15/2024 PHQ-2 Answer Date Recorded PHQ-2 Total Score (If total score is 3 or more points, staff should administer the PHQ-9) 0 05/23/2022 Hunger Vital Sign Answer Date Recorded Within the past 12 months, y ou worried that your food would run out before you got the money to buy more. Never true 01/15/20 24 Within the past 12 months, t he food you bought just didn't last and you didn't have money to get more. Never true 01/15/2024 PRAPARE - Transportation Answer Date Re corded In the past 12 months, has l ack of transportation kept you from medical appointments or from getting medications? No 12/21 In the past 12 months, has l ack of transportation kept you from meetings, work, or from getting things needed for daily living? No 01/15/2024 Housing Stability Vital Sign Answer Cesar e Recorded In the last 12 months, was t here a time when you were not able to pay the mortgage or rent on time? Yes 01/15/2024 In the past 12 months, how m any times have you moved where you were living? 3 01/15/2024 At any time in the past 12 m [facility], were you homeless or living in a detention (including now)? No 01/15/2024 Estimated Date of Delivery Comme nts Yes 07/19/2024 Based on last me nstrual period of 10/13/2023 (Exact Date) Sex and Gender Information Value Date Recorded Sex Assigned at Not on file Legal Sex Female 12:52 AM SCENIC DESIGNER Gender Identity Female 05/27/2019 9:07 AM CDT Sexual Orientation Choose not to disclose 2023 10:31 AM CDT Occupation Industry Job Start Date Job End Date Not on file Not on file Not on file Not on file Last Filed Vital Signs Vital Sign Reading Time Taken Comments Blood Pressure 100/68 04/01/2024 11:30 AM SCENIC DESIGNER manually Pulse 121 04/01/2024 11:30 AM SCENIC DESIGNER Temperature 36.5 C (97.7 F) 05/23/2022 11:38 AM CDT Respiratory Rate 18 05/23/2022 11:3 8 AM CDT Oxygen Saturation 97% 04/01/2024 11: 30 AM SCENIC DESIGNER Inhaled Oxygen Concentration - - Weight 148.7 kg (327 lb 12.8 oz) 2024 10:24 AM SCENIC DESIGNER Height 166.4 cm (5' 5.51 ) 04/01/2024 1 0:24 AM SCENIC DESIGNER Body Mass Index 53.7 04/01/2024 10:24 AM SCENIC DESIGNER Plan of Treatment Not on file Procedures Procedure Name Priority Date/Time Associated Diagnosis Comments POCT GLUCOSE Routine 04/01/2024 12:19 PM SCENIC DESIGNER BMI 53 US OB FOLLOW UP Schedule Routine, Read Routine (OP Routine) 04/01/2024 9:36 AM SCENIC DESIGNER History of pulmonary hypertension Dichorionic diamniotic twin , antepartum Supervision of high-risk , second trimester Anxiety and depression POCT URINE GLUCOSE AND PROTEIN Routine 03/06/2024 9:32 AM SCENIC DESIGNER care, subsequent in second trimester PROTEIN / CREATININE RATIO, URINE, RANDOM Routine 03/03/2024 12:34 PM SCENIC DESIGNER History of pulmonary hypertension Dichorionic diamniotic twin , antepartum Supervision of high-risk , second trimester Anxiety and depression EGFR Routine 03/03/2024 12:14 PM SCENIC DESIGNER History of pulmonary hypertension Dichorionic diamniotic twin , antepartum Supervision of high-risk , second trimester Anxiety and depression COMPREHENSIVE METABOLIC PANEL Routine 03/03/2024 12:14 PM SCENIC DESIGNER History of pulmonary hypertension Dichorionic diamniotic twin , antepartum Supervision of high-risk , second trimester Anxiety and depression US OB DETAIL ANATOMY SINGLE OR FIRST GESTATION Schedule Routine, Read Routine (OP Routine) 03/03/2024 9:06 AM SCENIC DESIGNER Twin gestation in first trimester, unspecified multiple gestation type History of pulmonary hypertension Supervision of high-risk , first trimester QNATEL ADVANCED Routine 02/19/2024 1:30 PM SCENIC DESIGNER Twin gestation in first trimester, unspecified multiple gestation type Maternal care for suspected chromosomal abnormality in fetus, single or unspecified fetus HEMOGLOBIN A1C Routine 02/19/2024 1:30 PM SCENIC DESIGNER Obesity affecting in second trimester, unspecified obesity type POCT URINE GLUCOSE AND PROTEIN Routine 02/06/2024 11:07 AM SCENIC DESIGNER care, subsequent in second trimester US OB FOLLOW UP Schedule Routine, Read Routine (OP Routine) 02/06/2024 10:57 AM SCENIC DESIGNER Twin gestation in first trimester, unspecified multiple gestation type 17 weeks gestation of US OB FOLLOW UP Schedule Routine, Read Routine (OP Routine) 02/06/2024 10:57 AM SCENIC DESIGNER Twin gestation in first trimester, unspecified multiple gestation type 17 weeks gestation of POCT URINE GLUCOSE AND PROTEIN Routine 01/15/2024 11:16 AM SCENIC DESIGNER care, subsequent , first trimester TRANSTHORACIC ECHO (TTE) COMPLETE W DOPPLER/CF WO CONTRAST Routine 01/09/2024 8:07 AM SCENIC DESIGNER Twin gestation in first trimester, unspecified multiple gestation type History of pulmonary hypertension Supervision of high-risk , first trimester US OB LIMITED Schedule Routine, Read Routine (OP Routine) 12/31/2023 9:17 AM SCENIC DESIGNER Supervision of high-risk , unspecified trimester PAP AND HIGH RISK HPV, REFLEX TO GENOTYPING Routine 12/20/2023 11:12 AM CDT HEPATITIS C ANTIBODY Routine 12/19/2023 2:49 PM CDT Encounter for supervision of other normal , first trimester 9 weeks gestation of from Last 3 Months or Most Recently Relevant to Health Maintenance Results * POCT glucose (04/01/2024 12:19 PM SCENIC DESIGNER) Glucose Blood, POC 77 mg/dL Blood 04/01/2024 12:1 9 PM SCENIC DESIGNER us Edilma Torres NP POINT OF CARE TEST ORDERABLES Final Result * US Ob Follow Up (04/01/2024 9:36 AM SCENIC DESIGNER) Fetus# Fetus1 VIEWPOINT Estimated Weight 767 g&grams VIEWPOINT Placenta Details anterior; previa - no VIEWPOINT Presentation Breech; Maternal left VIEWPOINT Fetus# Fetus2 VIEWPOINT Estimated Weight 709 g&grams VIEWPOINT Placenta Details anterior VIEWPOINT Presentation Vertex; Maternal right VIEWPOINT Anatomical Region Laterality Modality Abdomen N/A Ultrasound 04/01/2024 9:41 AM SCENIC DESIGNER Impressions 04/01/2024 10:34 AM SCENIC DESIGNER DC twins - 24w 3d - interval growth of both twins is normal - the sizes are concordant and AGA Tw 1 is low/Breech. Tw 2 is high/VTX. Narrative Procedure Note Ced Degroot MD - 04/01/2024 IMPRESSION: DC twins - 24w 3d - interval growth of both twins is normal - the sizesare concordant and AGA Tw 1 is low/Breech. Tw 2 is high/VTX. Juanis Arita MD IMG OB US PROCEDURES Final Result * (ABNORMAL) POCT urine glucose and protein (03/06/2024 9:32 AM SCENIC DESIGNER) Glucose, ur, POC 250.(A) Negative MG/DL Protein, ur, POC Negative Negative Lot Number [id number] Urine 03/06/2024 9:32 AM SCENIC DESIGNER Juanis Arita MD POINT OF CARE TEST OR DERABLES Final Result * Protein / creatinine ratio, urine, random (03/03/2024 12:34 PM SCENIC DESIGNER) Protein, ur, quant 15.4 mg/dL Comment: Interpretive Data No reference range established. Current interpretive data was last revised 2018. Creatinine Ur 161.6 mg/dL [facility] Comment: Interpretive Data No reference range established. Current interpretive data was last revised 2018. Protein/creatinin e ratio 95.3 0.0 - 180.0 mg/g CR [facility]ERT [facility] Urine 03/03/2024 12:3 4 PM SCENIC DESIGNER 03/03/2024 2:21 PM SCENIC DESIGNER Riri Ortiz MD LAB URINE ORDERABLES Mary Kay l Result Performing Organization Address [facility] Co de Phone Number [facility] [place] [address] * eGFR (03/03/2024 12:14 PM SCENIC DESIGNER) eGFR >90 >=60 mL/min/1. 73 m2 Comment: Interpretive Data Reference Interval Normal >/= 90 mL/min/1.73m2 Mildly decreased* 60 - 89 mL/min/1.73m2 Mildly to moderately decreased 45 - 59 mL/min/1.73m2 Moderately to severely decreased 30 - 44 mL/min/1.73m2 Severely decreased 15 - 29 mL/min/1.73m2 Kidney Failure < 15 mL/min/1.73m2 *Relative to young adult level Estimated glomerular filtration rate is determined by the 2020 CKD-EPI equation recommended by the National Kidney Foundation (A Unifying Approach to GFR Estimation: Recommendations of the NKF-ASK Task Force on Reassessing the Inclusion of Race in Diagnosing Kidney Disease, JASN 2020). The CKD-EPI equation should not be used for patients with unstable renal function and has not been validated in children and those over 70. Current interpretive data was last reviewed 2020. Blood 03/03/2024 12:1 4 PM SCENIC DESIGNER 03/03/2024 1:44 PM SCENIC DESIGNER Riri Ortiz MD LAB BLOOD ORDERABLES Mary Kay l Result Performing Organization Address [facility]/ZIP Co de Phone Number ROBERT ROGERS [facility] Department [place] [address] * (ABNORMAL) Comprehensive metabolic panel (03/03/2024 12:14 PM SCENIC DESIGNER) Sodium 140 135 - 145 mmol/L Potassium, pl 4.2 3.3 - 4.9 mmol/L [facility] Chloride 107 97 - 110 mmol/L [facility] CO2 25 22 - 32 mmol/L [facility] Anion gap 8 2 - 15 mmol/L [facility] BUN 5(L) 6 - 25 mg/dL [facility] Creatinine 0.58(L) 0.60 - 1.10 mg/dL [facility] Glucose 81 70 - 199 mg/dL [facility] Comment: Interpretive Data Fasting glucose >/= 126 mg/dl is diagnostic for diabetes. Fasting is defined as no caloric intake for at least 8 hours. Fasting glucose between 100 mg/dl to 125 mg/dl is diagnostic of prediabetes. In a patient with classic symptoms of hyperglycemia or hyperglycemic crisis, a random glucose >/= 200 mg/dl is diagnostic for diabetes. In the absence of unequivocal hyperglycemia, results should be confirmed by repeat testing. The classification and Diagnosis of Diabetes Diabetes Care 202; 46: S19-S40. Current interpretive data was last revised 2022. Calcium 9.6 8.5 - 10.3 mg/dL [facility] Bilirubin, total 0.3 0.1 - 1.2 mg/dL [facility] Protein, pl 7.2 6.5 - 8.5 g/dL [facility] Albumin 3.7 3.5 - 5.0 g/dL [facility] Alk phos 79 40 - 130 Units/L [facility] ALT 13 7 - 45 Units/L [facility] AST 17 10 - 45 Units/L [facility] Blood 03/03/2024 12:1 4 PM SCENIC DESIGNER 03/03/2024 1:40 PM SCENIC DESIGNER us Riri Ortiz MD LAB BLOOD ORDERABLES Mary Kay kelley Result [facility] [place] [address] * US Ob Detail Anatomy Single Or First Gestation (03/03/2024 9:06 AM SCENIC DESIGNER) Fetus# Fetus1 VIEWPOINT Estimated Weight 408 g&grams VIEWPOINT Placenta Details anterior VIEWPOINT Presentation Breech; Maternal left VIEWPOINT Fetus# Fetus2 VIEWPOINT Estimated Weight 341 g&grams VIEWPOINT Placenta Details anterior VIEWPOINT Presentation Vertex; Maternal right VIEWPOINT Anatomical Region Laterality Modality Body N/A Ultrasound 03/03/2024 9:34 AM SCENIC DESIGNER Impressions 03/04/2024 11:34 AM SCENIC DESIGNER DCDA Twin IUp at 20 weeks and 2 days Twin 1 1. Biometric measurements corresponded to established dates. 2. A detailed examination is performed and there are no malformations or soft markers for aneuploidy were seen at this time, within the limits of ultrasound. Twin 2 1. Biometric measurements corresponded to established dates. 2. A detailed examination is performed and there are no malformations or soft markers for aneuploidy were seen at this time, within the limits of ultrasound. Cervical length measures wnl. Thick dividing membrane visualized. Intertwin discordance of 16% Narrative Procedure Note Alexandria Harvey MD - 03/04/2024 IMPRESSION: DCDA Twin IUp at 20 weeks and 2 days Twin 1 1. Biometric measurements corresponded to established dates. 2. A detailed examination is performed and there are no fetalmalformations or soft markers for aneuploidy were seen at this time,within the limits of ultrasound. Twin 2 1. Biometric measurements corresponded to established dates. 2. A detailed examination is performed and there are no fetalmalformations or soft markers for aneuploidy were seen at this time,within the limits of ultrasound. Cervical length measures wnl. Thick dividing membrane visualized. Intertwin discordance of 16% us Juanis Arita MD IMG OB US PROCEDURES Final Result * QNatelaAdvanced (02/19/2024 1:30 PM SCENIC DESIGNER) Number of fetuses 2 [facility], Down syndrome risk, maternal age NOT GIVEN [facility], Abnormal Grace? NOT GIVEN [facility], Abnormal Us? NOT GIVEN [facility], History, personal/family NOT GIVEN [facility], test, interpretation TNP [facility], Comment: TEST(S) NOT PERFORMED: INTERPRETATION TRISOMY 21 (T21) TRISOMY 18 (T18) TRISOMY 13 (T13) Y CHROMOSOME Y CHR. INTERPRETATION SEX CHROMOSOME SEX CHROMOSOME INTERP MICRODELETION MICRODELETION INTERP GESTATIONAL AGE(IN WEEKS) GESTATIONAL AGE (IN DAYS) FRACTION LABORATORY COMMENTS LIMITATIONS SPECIFICATIONS METHODOLOGY Unable to report. This sample was processed and does not meet quality metrics. This is likely specific to this sample and submission of a new sample is required for testing. Blood 02/19/2024 1:30 PM SCENIC DESIGNER 02/19/2024 1:32 PM SCENIC DESIGNER Juanis Arita MD LAB GENETIC TESTING F inal Result Performing Organization Address City/[facility]/ZIP Co de Phone Number [facility], [address] [place] [address] * Hemoglobin A1c (02/19/2024 1:30 PM SCENIC DESIGNER) Hgb A1C 5.1 <5.7 % [facility] Comment: For the purpose of screening for the presence of diabetes: <5.7% Consistent with the absence of diabetes 5.7-6.4% Consistent with increased risk for diabetes (prediabetes) > or =6.5% Consistent with diabetes This assay result is consistent with a decreased risk of diabetes. Currently, no consensus exists regarding use of hemoglobin A1c for diagnosis of diabetes in children. According to [place] Diabetes Association (ADA) guidelines, hemoglobin A1c <7.0% represents optimal control in non- diabetic patients. Different metrics may apply to specific patient populations. Standards of Medical Care in Diabetes(ADA). Blood 02/19/2024 1:30 PM SCENIC DESIGNER 02/19/2024 1:32 PM SCENIC DESIGNER Juanis Arita MD LAB BLOOD ORDERABLES Final Result Performing Organization Address City/[facility]/ZIP Co de Phone Number [facility] [address] [place] [address] * POCT urine glucose and protein (02/06/2024 11:07 AM SCENIC DESIGNER) Glucose, ur, POC Negative Negative MG/DL Protein, ur, POC Negative Negative Lot Number [id number] Urine 02/06/2024 11:0 7 AM SCENIC DESIGNER Juanis Arita MD POINT OF CARE TEST OR DERABLES Final Result * US Ob Follow Up (02/06/2024 10:57 AM SCENIC DESIGNER) Anatomical Region Laterality Modality Abdomen N/A Ultrasound 02/12/2024 3:00 PM SCENIC DESIGNER Narrative 02/12/2024 3:01 PM SCENIC DESIGNER EXAM DESCRIPTION: US OB FOLLOW UP REASON FOR STUDY: Check measurements and fluid levels, Check measurements and fluid levels DI/DI Twins growth and fluid for Baby A TECHNIQUE: Limited transabdominal grayscale ultrasound for obstetrical evaluation. COMPARISON: December 19, 2023 FINDINGS: Clinical gestational age: 16 weeks 4 days Clinical estimated Due Date: July 19, 2024 number: 2 . The twins appear to be dichorionic/diamniotic. Presentation: Baby A has a cephalic presentation. Baby B has a breech presentation at the present time. Baby B is on the right, and baby A is on the left. Placenta location: Anterior Amniotic fluid: 3.2 cm for baby A. 3.8 cm for baby B. The exam is obtained to early in the gestation to adequately evaluate the anatomy. * heart rate: Baby A 160 bpm. Baby B 159 beats per minute. Fetus A measurements: Biparietal diameter: 3.9 cm ( 17 weeks 5 days ) Head circumference: 14.4 cm ( 17 weeks 4 days ) Abdominal circumference: 10.7 cm ( 16 weeks 4 days ) Femur length: 2.2 cm ( 16 weeks 5 days ) Ratios: FL/AC: 21.0 (20-24) HC/AC: 1.34 ( 1.07 - 1.29 ) * Fetus B measurements: Biparietal diameter: 3.5 cm ( 16 weeks 6 days ) Head circumference: 13.7 cm ( 17 weeks 1 day ) Abdominal circumference: 10.4 cm ( 16 weeks 2 days ) Femur length: 2.2 cm ( 16 weeks 3 days ) Ratios: FL/AC: 21.0 (20-24) HC/AC: 1.33 ( 1.07 - 1.30 ) * Gestational age by this ultrasound: 16 weeks 4 days. OCTAVIO by this ultrasound: There has been interval appropriate growth for both fetuses. Estimated weight by this ultrasound: 158 g ( baby B ). 168 g baby A EFW percentile (based on 1st trimester ultrasound ): 37th percentile for fetus B. Fetus A 56th percentile. Cervical length: 3.8 cm Other: The placenta is grade 2, and there is no evidence of placenta previa. IMPRESSION: 1. Interval appropriate growth for a twin gestation 2. The exam is performed too early in the gestation to adequately evaluate the anatomy. 3. Minimal elevation of the head circumference to abdominal circumference ratio is likely secondary to the degree growth restriction seen with twinning. THIS IS AN ELECTRONICALLY VERIFIED FINAL REPORT 02/12/2024 3:01 PM - Electronically signed by Ratna Mehta M.D. LD: JOSE RAFAEL Report ID: [id number] Reading Location: [id number] Procedure Note Ratna Mehta MD - 02/12/2024 EXAM DESCRIPTION: US OB FOLLOW UP REASON FOR STUDY: Check measurements and fluid levels, Check measurementsand fluid levels DI/DI Twins growth and fluid for Baby A TECHNIQUE: Limited transabdominal grayscale ultrasound for obstetrical evaluation. COMPARISON: December 19, 2023 FINDINGS: Clinical gestational age: 16 weeks 4 days Clinical estimated Due Date: July 19, 2024 number: 2 . The twins appear to be dichorionic/diamniotic. Presentation: Baby A has a cephalic presentation. Baby B has a breech presentation at the present time. Baby B is on the right, and baby A caroline the left. Placenta location: Anterior Amniotic fluid: 3.2 cm for baby A. 3.8 cm for baby B. The exam is obtained to early in the gestation to adequately evaluate the anatomy. * heart rate: Baby A 160 bpm. Baby B 159 beats per minute. Fetus A measurements: Biparietal diameter: 3.9 cm ( 17 weeks 5 days ) Head circumference: 14.4 cm ( 17 weeks 4 days ) Abdominal circumference: 10.7 cm ( 16 weeks 4 days ) Femur length: 2.2 cm ( 16 weeks 5 days ) Ratios: FL/AC: 21.0 (20-24) HC/AC: 1.34 ( 1.07 - 1.29 ) * Fetus B measurements: Biparietal diameter: 3.5 cm ( 16 weeks 6 days ) Head circumference: 13.7 cm ( 17 weeks 1 day ) Abdominal circumference: 10.4 cm ( 16 weeks 2 days ) Femur length: 2.2 cm ( 16 weeks 3 days ) Ratios: FL/AC: 21.0 (20-24) HC/AC: 1.33 ( 1.07 - 1.30 ) * Gestational age by this ultrasound: 16 weeks 4 days. OCTAVIO by this ultrasound: There has been interval appropriate growth forboth fetuses. Estimated weight by this ultrasound: 158 g ( baby B ). 168 g babyA EFW percentile (based on 1st trimester ultrasound ): 37th percentile for fetus B. Fetus A 56th percentile. Cervical length: 3.8 cm Other: The placenta is grade 2, and there is no evidence of placentaprevia. IMPRESSION: 1. Interval appropriate growth for a twin gestation 2. The exam is performed too early in the gestation to adequately evaluatethe anatomy. 3. Minimal elevation of the head circumference to abdominal circumference ratio is likely secondary to the degree growth restriction seen withtwinning. THIS IS AN ELECTRONICALLY VERIFIED FINAL REPORT 02/12/2024 3:01 PM - Electronically signed by Ratna Mehta M.D. LD: JOSE RAFAEL Report ID: [id number] Reading Location: [id number] us Juanis Arita MD IMG OB US PROCEDURES Final Result * US Ob Follow Up (02/06/2024 10:57 AM SCENIC DESIGNER) Anatomical Region Laterality Modality Abdomen N/A Ultrasound 02/12/2024 2:22 PM SCENIC DESIGNER Narrative 02/12/2024 3:00 PM SCENIC DESIGNER EXAM DESCRIPTION: US OB FOLLOW UP REASON FOR STUDY: Check measurements and fluid levels, Check measurements and fluid levels DI/DI Twins growth and fluid for Baby B TECHNIQUE: Limited transabdominal grayscale ultrasound for obstetrical evaluation. COMPARISON: December 19, 2023 FINDINGS: Clinical gestational age: 16 weeks 4 days Clinical estimated Due Date: July 19, 2024 number: 2 . The twins appear to be dichorionic/diamniotic. Presentation: Baby A has a cephalic presentation. Baby B has a breech presentation at the present time. Baby B is on the right, and baby A is on the left. Placenta location: Anterior Amniotic fluid: 3.2 cm for baby A. 3.8 cm for baby B. The exam is obtained to early in the gestation to adequately evaluate the anatomy. * heart rate: Baby A 160 bpm. Baby B 159 beats per minute. Fetus A measurements: Biparietal diameter: 3.9 cm ( 17 weeks 5 days ) Head circumference: 14.4 cm ( 17 weeks 4 days ) Abdominal circumference: 10.7 cm ( 16 weeks 4 days ) Femur length: 2.2 cm ( 16 weeks 5 days ) Ratios: FL/AC: 21.0 (20-24) HC/AC: 1.34 ( 1.07 - 1.29 ) * Fetus B measurements: Biparietal diameter: 3.5 cm ( 16 weeks 6 days ) Head circumference: 13.7 cm ( 17 weeks 1 day ) Abdominal circumference: 10.4 cm ( 16 weeks 2 days ) Femur length: 2.2 cm ( 16 weeks 3 days ) Ratios: FL/AC: 21.0 (20-24) HC/AC: 1.33 ( 1.07 - 1.30 ) * Gestational age by this ultrasound: 16 weeks 4 days. OCTAVIO by this ultrasound: There has been interval appropriate growth for both fetuses. Estimated weight by this ultrasound: 158 g ( baby B ). 168 g baby A EFW percentile (based on 1st trimester ultrasound ): 37th percentile for fetus B. Fetus A 56th percentile. Cervical length: 3.8 cm Other: The placenta is grade 2, and there is no evidence of placenta previa. IMPRESSION: 1. Interval appropriate growth for a twin gestation 2. The exam is performed too early in the gestation to adequately evaluate the anatomy. 3. Minimal elevation of the head circumference to abdominal circumference ratio is likely secondary to the degree growth restriction seen with twinning. THIS IS AN ELECTRONICALLY VERIFIED FINAL REPORT 02/12/2024 3:00 PM - Electronically signed by Ratna Mehta M.D. LD: JOSE RAFAEL Report ID: [id number] Reading Location: [id number] Procedure Note Ratna Mehta MD - 02/12/2024 EXAM DESCRIPTION: US OB FOLLOW UP REASON FOR STUDY: Check measurements and fluid levels, Checkmeasurements and fluid levels DI/DI Twins growth and fluid for Baby B TECHNIQUE: Limited transabdominal grayscale ultrasound for obstetrical evaluation. COMPARISON: December 19, 2023 FINDINGS: Clinical gestational age: 16 weeks 4 days Clinical estimated Due Date: July 19, 2024 number: 2 . The twins appear to be dichorionic/diamniotic. Presentation: Baby A has a cephalic presentation. Baby B has a breech presentation at the present time. Baby B is on the right, and baby A caroline the left. Placenta location: Anterior Amniotic fluid: 3.2 cm for baby A. 3.8 cm for baby B. The exam is obtained to early in the gestation to adequately evaluate the anatomy. * heart rate: Baby A 160 bpm. Baby B 159 beats per minute. Fetus A measurements: Biparietal diameter: 3.9 cm ( 17 weeks 5 days ) Head circumference: 14.4 cm ( 17 weeks 4 days ) Abdominal circumference: 10.7 cm ( 16 weeks 4 days ) Femur length: 2.2 cm ( 16 weeks 5 days ) Ratios: FL/AC: 21.0 (20-24) HC/AC: 1.34 ( 1.07 - 1.29 ) * Fetus B measurements: Biparietal diameter: 3.5 cm ( 16 weeks 6 days ) Head circumference: 13.7 cm ( 17 weeks 1 day ) Abdominal circumference: 10.4 cm ( 16 weeks 2 days ) Femur length: 2.2 cm ( 16 weeks 3 days ) Ratios: FL/AC: 21.0 (20-24) HC/AC: 1.33 ( 1.07 - 1.30 ) * Gestational age by this ultrasound: 16 weeks 4 days. OCTAVIO by this ultrasound: There has been interval appropriate growth forboth fetuses. Estimated weight by this ultrasound: 158 g ( baby B ). 168 gbaby A EFW percentile (based on 1st trimester ultrasound ): 37th percentile for fetus B. Fetus A 56th percentile. Cervical length: 3.8 cm Other: The placenta is grade 2, and there is no evidence of placentaprevia. IMPRESSION: 1. Interval appropriate growth for a twin gestation 2. The exam is performed too early in the gestation to adequatelyevaluate the anatomy. 3. Minimal elevation of the head circumference to abdominal circumference ratio is likely secondary to the degree growth restriction seen withtwinning. THIS IS AN ELECTRONICALLY VERIFIED FINAL REPORT 02/12/2024 3:00 PM - Electronically signed by Ratna Mehta M.D. LD: JOSE RAFAEL Report ID: [id number] Reading Location: [place] [address] Juanis Arita MD IMG OB US PROCEDURES Final Result * POCT urine glucose and protein (01/15/2024 11:16 AM SCENIC DESIGNER) Glucose, ur, POC Negative Negative MG/DL Protein, ur, POC Negative Negative Lot Number [id number] Urine 01/15/2024 11:1 6 AM SCENIC DESIGNER Juanis Arita MD POINT OF CARE TEST OR DERABLES Final Result * TRANSTHORACIC ECHO (TTE) COMPLETE W DOPPLER/CF WO CONTRAST (01/09/2024 8:07 AM SCENIC DESIGNER) LV EF 67 % CARDIOREPORT Anatomical Region Laterality Modality Ultrasound 01/09/2024 7:00 AM SCENIC DESIGNER Narrative 01/10/2024 10:51 AM SCENIC DESIGNER Patient name: Tramaine Shore Date of test: 01/09/2024 Type of test: TTE w/Doppler Hospital #: [id number] Date of : 1990 (F) Commodity Management Specialist: Monica Rodriguez RDCS Referring Physician: SANGITA BALTAZAR MD Contrast Agent: Contrast Administered by: Supervised/Interpreted by: Mejia Pantoja MD Diagnosis: Location: [facility] Reason for test: twin gestation first trimester, hx of pulm htn MV Structure: Normal, MV Motion: Normal, Mitral Annulus: Normal AV Structure: tricuspid and is Normal, AV Motion: Normal Aotic root: Normal, TM: Normal, PV: Normal Valvular Vegetations: none seen, Mass/Thrombi: none seen RA: Normal Measurements: M-Mode Normal Aotic Root: <3.8 LA: <3.8 RV: <2.8 LV(ED): <5.7 LV(ES): Variable 2D Linear Normal Aotic Root: 3.0 cm <3.6 Ao Indexed: 1.2 cm/M2 <2.0 LA: <3.8 RV: 3.6 cm <4.2 LV(ED): 5.6 cm <5.3 LV(ES): 3.6 cm <3.5 2D Vol. Normal Indexed Indexed Normal RA: 36.0 ml 14.8 ml/M2 9-33 LA: 38.0 ml 15.7 ml/M2 16-34 RV: <11.6 LV(ED): 138.0 ml 46-106 56.9 ml/M2 <62 LV(ES): 45.0 ml 14-42 18.6 ml/M2 <25 3D Vol. Indexed Normal LV(ED): <62 LV(ES): <24 LV EF: 67 % (Normal: >=54%) LV Septum: 0.9 cm (Normal: <0.9 cm) Wall Motion Scoring (1=Normal 2=Hypo 3=Akinetic 4=Dyskin./Aneurysm 0=Not visualized) Parasternal Long [place]:MAS=1 BAS=1 MIL=1 EUFEMIA=1 Parasternal Short [place]:MAS=1 MIS=1 OR=1 MIL=1 MAL=1 MA=1 Apical 4 Chambers:=1 MIS=1 BIS=1 BAL=1 MAL=1 AL=1 AC=1 Apical 2 Chambers:AI=1 OR=1 BI=1 BA=1 MA=1 AA=1 AC=1 LV Global Longitudinal Strain: -17.1% (Normal <-17%) RV Global Longitudinal Strain: LV Function: Normal LV Ejection Fraction, (EF=54-74%) RV Function: Normal Septal Motion: Normal Pericardial Effusion: none seen Atrial Septum: Normal DOPPLER/COLOR FLOW DOPPLER RESULTS: Diastolic Function: Normal Tricuspid Valve: mild TV regurgitation Pulmonic Valve: normal PV AV Regurgitation: No AR seen AV Stenosis: no AV Area: cm2 AV Pressure Gradient (mmHg): Mean: 0, Peak:0 MV Regurgitation: No MR seen MV Stenosis: no MS MV Area: cm2 MV Pressure Gradient (mmHg): Mean: 0 MV ERO: cm Regurg. Vol.: ml/beat Regurg. Frac.: % PA Pressure: 15+RA mmHg DOPPLER/COLOR FOLOW DOPPLER COMMENTS: No AR seen, No MR seen, no , no MS, mild TV regurgitation, normal PV. Diastolic function: Normal TAPSE 2.8 cm SUMMARY: No prior TTE for comparison.Normal LV systolic function (LVEF 67%, GLS -17.1%). Normal diastolic function. LA is normal. Normal RV cavity size. LV cavity size is normal. Normal LV wall thickness/mass. Normal Inferior vena cava. Normal aorta. Confirmed on 01/10/2024 - 10:51:46 by Mejia Pantoja MD By signing this report, the attending fuel tank sealer and tester certifies that he or she has personally supervised and interpreted the echocardiogram and has reviewed and or edited and agrees with the written comments contained within the report. Procedure Note Mejia Pantoja MD - 01/10/2024 Patient name: Tramaine Shore Date of test: 01/09/2024 Type of test: TTE w/[facility] #: 0 Date of : 1990 (F) Commodity Management Specialist: Monica Rodriguez RDCS Referring Physician: SANGITA BALTAZAR MD Contrast Agent: Contrast Administered by: Supervised/Interpreted by: Mejia Pantoja MD Diagnosis: Location: [facility] Reason for test: twin gestation first trimester, hx of pulm htn MV Structure: Normal, MV Motion: Normal, Mitral Annulus: Normal AV Structure: tricuspid and is Normal, AV Motion: Normal Aotic root: Normal, TM: Normal, PV: Normal Valvular Vegetations: none seen, Mass/Thrombi: none seen RA: Normal Measurements: M-Mode Normal Aotic Root: <3.8 LA: <3.8 RV: <2.8 LV(ED): <5.7 LV(ES): Variable 2D Linear Normal Aotic Root: 3.0 cm <3.6 Ao Indexed: 1.2 cm/M2 <2.0 LA: <3.8 RV: 3.6 cm <4.2 LV(ED): 5.6 cm <5.3 LV(ES): 3.6 cm <3.5 2D Vol. Normal Indexed Indexed Normal RA: 36.0 ml 14.8 ml/M2 9-33 LA: 38.0 ml 15.7 ml/M2 16-34 RV: <11.6 LV(ED): 138.0 ml 46-106 56.9 ml/M2 <62 LV(ES): 45.0 ml 14-42 18.6 ml/M2 <25 3D Vol. Indexed Normal LV(ED): <62 LV(ES): <24 LV EF: 67 % (Normal: >=54%) LV Septum: 0.9 cm (Normal: <0.9 cm) Wall Motion Scoring (1=Normal 2=Hypo 3=Akinetic 4=Dyskin./Aneurysm 0=Not visualized) Parasternal Long [place]:MAS=1 BAS=1 MIL=1 EUFEMIA=1 Parasternal Short [place]:MAS=1 MIS=1 OR=1 MIL=1 MAL=1 MA=1 Apical 4 Chambers:=1 MIS=1 BIS=1 BAL=1 MAL=1 AL=1 AC=1 Apical 2 Chambers:AI=1 OR=1 BI=1 BA=1 MA=1 AA=1 AC=1 LV Global Longitudinal Strain: -17.1% (Normal <-17%) RV Global Longitudinal Strain: LV Function: Normal LV Ejection Fraction, (EF=54-74%) RV Function: Normal Septal Motion: Normal Pericardial Effusion: none seen Atrial Septum: Normal DOPPLER/COLOR FLOW DOPPLER RESULTS: Diastolic Function: Normal Tricuspid Valve: mild TV regurgitation Pulmonic Valve: normal PV AV Regurgitation: No AR seen AV Stenosis: no AV Area: cm2 AV Pressure Gradient (mmHg): Mean: 0, Peak:0 MV Regurgitation: No MR seen MV Stenosis: no MS MV Area: cm2 MV Pressure Gradient (mmHg): Mean: 0 MV ERO: cm Regurg. Vol.: ml/beat Regurg. Frac.: % PA Pressure: 15+RA mmHg DOPPLER/COLOR FOLOW DOPPLER COMMENTS: No AR seen, No MR seen, no , no MS, mild TV regurgitation, normal PV. Diastolic function: Normal TAPSE 2.8 cm SUMMARY: No prior TTE for comparison.Normal LV systolic function (LVEF 67%, GLS -17.1%). Normal diastolic function. LA is normal. Normal RV cavity size. LV cavity size is normal. Normal LV wall thickness/mass. Normal Inferior vena cava. Normal aorta. Confirmed on 01/10/2024 - 10:51:46 by Mejia Pantoja MD By signing this report, the attending fuel tank sealer and tester certifies that he or she has personally supervised and interpreted the echocardiogram and has reviewed and or edited and agrees with the written comments contained within the report. Sangita Baltazar MD CV ECHO PROCEDURE S Final Result * US Ob Limited (12/31/2023 9:17 AM SCENIC DESIGNER) Fetus# Fetus1 VIEWPOINT Placenta Details anterior VIEWPOINT Fetus# Fetus2 VIEWPOINT Placenta Details anterior VIEWPOINT Anatomical Region Laterality Modality Abdomen N/A Ultrasound 12/31/2023 9:18 AM SCENIC DESIGNER Impressions 12/31/2023 10:08 AM SCENIC DESIGNER Dichorionic-diamniotic twin with normal CRL for each today. Narrative Procedure Note Rufina Steven MD - 12/31/2023 IMPRESSION: Dichorionic-diamniotic twin with normal CRL for each today. us Juanis Arita MD IMG OB US PROCEDURES Final Result * Pap and High Risk HPV and Genotyping (Cytology Component) (12/20/2023 11:12 AM CDT) Pap test 12/20/2023 11:1 2 AM CDT 12/20/2023 11:12 AM CDT Narrative 12/24/2023 12:59 PM SCENIC DESIGNER [facility] Department of Pathology [address] [place] [address] Final Report with Addendum Note to Patients: This report may contain a detailed description of human tissue sent by a health care provider to the laboratory for pathologic evaluation. The content of this report is essential for diagnosis and may provide important critical findings. This information may be unfamiliar to patients to review without a medical professional present. It is advised that the patient review this report in the presence of a health care provider who can answer questions and explain the details. Patient Name: TRAMAINE SHORE Address: [address] [place] [address] Gender: F : 1990 (Age: 33) Service: Location: [facility] #: [id number] Patient Type: [facility] SPECIMEN Taken: 12/20/2023 Received: 12/20/2023 Accessioned:: 12/21/2023 Reported: 12/24/2023 Physician(s): MD Juanis Vides MD Diagnosis: SOURCE OF SPECIMEN SCREENING THIN PREP IMAGED PAP w/ HPV: STATEMENT OF ADEQUACY - Specimen satisfactory for interpretation; endocervical/transformation zone component absent or insufficient GENERAL CATEGORIZATION: - Negative for intraepithelial lesion or malignancy RUPA Carter(ASCP) Report Electronically Reviewed and Signed Out By RUPA Carter(ASCP) 12/24/2023 12:59:01Addenda: HPV Test Interpretation (Normal-Negative for High Risk HPV) HPV HR 16- Not detected HPV HR 18-Not detected HPV HR non 16/18- Not detected Interpretive Data Nucleic acid amplification for detection of high-risk Human Papilloma virus (HPV) is performed by the Tim Tania 6800 HPV test. This assay specifically detects HPV- 16 and HPV-18 genotypes. The following HPV genotypes are detected as high-risk HPV: HPV-31, 33, 35, 39, 45, 51, 52, 56, 58, 59, 66, and 68. This assay has been approved by the [place] Food and Drug Administration for detection of HPV in cervical specimens collected by a physician using an endocervical brush/spatula or cervical broom and placed in the ThinPrep Pap Test PreservCyt collection containers. The performance characteristics of this test have been verified by the [facility] Molecular Infectious Disease laboratory. Correlate with reported cytology results, as applicable. Interpretive data last revised 22 RUPA Carter(ASC)Report Electronically Reviewed and Signed Out By RUPA Carter(ASC) 12/24/2023 12:50:33 Specimen(s) Received: A: SCREENING THIN PREP IMAGED PAP w/ HPV Clinical History: Last Menstrual Period: 10/13/23 Menstrual History: Previous Negative Pap The Pap test is a screening test used to aid in the detection of cervical cancer and its precursors. It should not be the sole means by which malignant and premalignant lesions are diagnosed. Both false negative and false positive results may occur. It also has poor sensitivity for the detection of endometrial lesions and should not be used to evaluate suspected endometrial abnormalities. For these reasons it is most important to obtain Pap tests at regular intervals. The performance characteristics of some immunohistochemical stains, fluorescence in-situ hybridization tests and immunophenotyping by flow cytometry cited in this report (if any) were determined by the Surgical Pathology Department at [facility] as part of an ongoing supplier quality engineering manager program and in compliance with federally mandated regulations drawn from the Clinical Laboratory Improvement Act of 1988 (CLIA '88). Some of these tests rely on the use of analyte specific reagents and are subject to specific labeling requirements by the [place] Food and Drug Administration. Such diagnostic tests may only be performed in a facility that is certified by the Department of Health and Human Services as a high complexity laboratory under CLIA '88. The FDA has determined that such clearance or approval is not necessary. This test is used for clinical purposes. It should not be regarded as investigational or for research. Nevertheless, federal rules concerning the medical use of analyte specific reagents require that the following disclaimer be attached to the report: This test was developed and its performance characteristics determined by the Surgical Pathology Department [facility]. It has not been cleared or approved by the [place]. S. Food and Drug Administration. Juanis Arita MD LAB CYTOLOGY ORDERABL ES Final Result * Hepatitis C antibody Blood (12/19/2023 2:49 PM CDT) Hep C Ab Nonreactive Nonreactive Comment: Interpretive Data Nonreactive: Antibodies to HCV not detected. Does NOT exclude the possibility of recent exposure to HCV. Equivocal: Equivocal for HCV antibodies. Supplemental molecular testing will be automatically performed to determine infection status in accordance with current CDC screening recommendations. Reactive: Positive for HCV antibodies. This may represent current or past HCV infection. Supplemental molecular testing will be automatically performed to determine current infection status in accordance with current CDC screening recommendations. Interpretive data was last revised on 2019. Testing performed by: [facility], [address] [place] [address]., [id number] Blood 12/19/2023 2:49 PM CDT 12/19/2023 9:16 PM CDT Juanis Arita MD LAB MICROBIOLOGY - GE NERAL ORDERABLES Final Result [facility] [id number] [facility] [place] [address] from Last 3 Months or Most Recently Relevant to Health Maintenance Insurance [employer] PPO Care Teams Head Sampler Relationship Specialty Start Date End Date Marcy Ho DO [address] [place] [address] PCP - General Family Medicine 12/06/23
--- OUTSIDE RECORDS SUMMARY | 2024-04-01 15:27 | XMS_ITS | Clinical Summary ---
Author Organization [facility] Address [address] [place] [address] Phone Care Team Providers Care Machine Zipper Trimmer Name Role Phone Leah Herman Primary Care Provider [phone] Medications citalopram (CELEXA) 20 MG Tablet Take 20 mg by mouth daily. 05/23/2018 Active amitriptyline (ELAVIL) 10 MG Tablet Take 10 mg by mouth nightly. Active Active Problems Problem Noted Date Diagnosed Date Sacroiliac joint dysfunction of both sides 05/28 Social History Tobacco Use Types Packs/Day Years Used Date Smoking Tobacco: Never Assessed Comments Unknown Sex and Gender Information Value Date Recorded Sex Assigned at Not on file Legal Sex Female 10:53 PM CDT Gender Identity Not on file Sexual Orientation Not on file Last Filed Vital Signs Vital Sign Reading Time Taken Comments Blood Pressure 136/77 06/18/2018 10:22 AM CDT Pulse 76 06/18/2018 10:22 AM CDT Temperature 36.8 C (98.3 F) 06/18/2018 10:22 AM CDT Respiratory Rate - - Oxygen Saturation 100% 06/18/2018 10:22 AM CDT Inhaled Oxygen Concentration - - Weight - - Height - - Body Mass Index - - Plan of Treatment Health Maintenance Due Date Last Done Comments Hepatitis C Virus (HCV) Screening 1990 Pap Smear 10/05/2011 Cervical Cancer Screening (CCS) 2020 HPV/Cotest 2020 Influenza Immunization (#1) 10/21/202312/21, 12/07/2016, 02/22/2015 SARS-COV-2 Immunization ( season) 2023 01/19/2021, 07/16/2020, 06/25/2020 Respiratory Syncytial Virus (RSV) Immunization (Adult) (1 - 1-dose 75+ series) 2065 Hepatitis B Immunization Completed 002, 10/03/2000, 08/30/2000 DTaP/Tdap/Td Immunization Discontinued 2015, 08/03/2004, 11/21/1994, Additional history exists TdaP Immunization Completed 02/23/2015 Meningococcal Immunization (ACWY) Aged Out No longer eligible based on patient's age to complete this topic Pneumococcal Immunization Combined Aged Out No longer eligible based on patient's age to complete this topic Rotavirus Immunization Aged Out No lo nger eligible based on patient's age to complete this topic Care Teams Machine Zipper Trimmer Relationship Specialty Start Date End Date Leah Herman PA [address] [address] PCP - General Adult Medicine 12/20/16
--- OUTSIDE RECORDS SUMMARY | 2024-04-01 15:27 | XMS_ITS | Clinical Summary ---
Author Organization [facility] Address [address] [place] [address] Care Team Providers Care Adviser Sales Name Role Phone Marcy Ho Primary Care Provider [phone] Allergies No known active allergies Medications PNV [...] Counseling Pre- BMI: 53 Previously counseled by M Recommendations [x] Early A1C - 5.1% [x] Baseline PIH labs - Cr 0.58, AST 17, ALT 13, UPC 0.0953 (03/03/2024) [x] Anatomy/growths per twins [] Anesthesia consult in third trimester if planned delivery at [facility] for any reason [] Weekly testing starting at 34 weeks given BMI of 40+ Assessment & Plan (03/03/2024 5:15 PM PROCESS CONTROL BOARD OPERATOR): Anatomy ultrasound today with AGA growth of both fetuses with all visualized anatomy wnl. Recommendations [x] Early A1C - 5.1% [] Baseline PIH labs - CMP, UPC ordered 03/03/2024 [] Anatomy/growths per twins [] Anesthesia consult in third trimester if planned delivery at [facility] for any reason [] Weekly testing starting at 34 weeks given BMI of 40+ Supervision of high-risk , second trime ster 12/24/2023 Overview (04/01/2024): [x] Co-management [x] Blue Team Referring Provider: Juanis Arita [phone] [] or Medicare Insurance [x] Dating Criteria: LMP 10/13/23 with OCTAVIO 07/19/24 [x] Labs: Rh [A-], Ab [negative], Rubella [immune], HIV [non-reactive], HepBSAg [non-reactive], HepBCAb [not done], HepBSAb [not done], RPR [non- reactive], Hep C [non-reactive], Varicella [positive], GC/CT [negative/negative] [] Aneuploidy: NIPT drawn at [facility], did not result due to sample error [...] weeks. Assessment & Plan (03/03/2024 5:11 PM PROCESS CONTROL BOARD OPERATOR): [x] Co-management vs. [] Full MF Care; [] Red Team [x] Blue Team Referring Provider: Juanis Arita [phone] [] or Medicare Insurance [x] Dating Criteria: [...] workup Assessment & Plan (03/03/2024 3:23 PM PROCESS CONTROL BOARD OPERATOR): Recommendations - Rhogam at 28 weeks and [...] with normal EF. - Previously counseled by [facility] Recommendations [x] EKG, okay to defer given echo wnl [x] Maternal echo: normal on 01/09/2024, no further work up needed [x] Further counseling and consideration of cardiology consultation if cardiac diagnosis is made on echo - NA Assessment & Plan (03/03/2024 5:12 PM PROCESS CONTROL BOARD OPERATOR): History & Counseling - Readmitted one week [...] with normal EF. - Previously counseled by [facility] Recommendations [x] EKG, okay to defer given [...] 34 weeks per BMI [] Delivery by [id number] or earlier if indicated Assessment & Plan (03/03/2024 3:32 PM PROCESS CONTROL BOARD OPERATOR): Anatomy ultrasound today with AGA growth of [...] 34 weeks per BMI [] Delivery by [id number] or earlier if indicated Anxiety and depression 12/21/2023 Overview (03/03/2024): History & Counseling Followed by psychiatrist, Dr. Murillo Previously counseled by [facility] Current medication regimen: Effexor 150mg daily, Lamictal 50mg daily Recommendations - Monitor mood every visit - Follow-up with Dr. Murillo scheduled 03/21/24 Assessment & Plan (03/03/2024 3:33 PM PROCESS CONTROL BOARD OPERATOR): EPDS 3 today. Improved mood in second [...] 12/21/2023 Obese 05/27/2019 05/17/2020 Seasonal allergies 05/27/2019 4 Assessment & Plan (05/27/2019 8:04 PM CDT): [...] (09/18/2018): Added automatically from request for surgery [id number] Cystic teratoma of ovary, left 09/18/2018 05/17/2020 Overview (09/18/2018): Added automatically from request for surgery [id number] Sacroiliac joint dysfunction of both sides 05/28/2018 [...] to help with the lower back pain. Encounters Date Type Department Care Team Description 04/01/2024 11:20 AM PROCESS CONTROL BOARD OPERATOR Office Visit [facility] Maternal- Medicine [address] [place] [address] 7th [address] [place] [address] Anxiety and depression (Primary Dx); BMI 53; Dichorionic diamniotic twin , antepartum; History of pulmonary hypertension; Rh negative state in antepartum period; Supervision of high-risk , second trimester 04/01/2024 9:36 AM PROCESS CONTROL BOARD OPERATOR Hospital Encounter [facility] - Ultrasound [address] [place] [address], 7th Floor, [address] [place], [place] [id number] History of pulmonary hypertension; Dichorionic diamniotic twin , antepartum; Supervision of high-risk , second trimester; Anxiety and depression 03/06/2024 9:30 AM PROCESS CONTROL BOARD OPERATOR Office Visit [facility] Medical [facility] [address] [place] [address] Juanis Arita MD care, subsequent in second trimester (Primary Dx); Dichorionic diamniotic twin , antepartum 03/04/2024 Telephone [facility] [address] [place] [phone] Mireya Mitchell LPN 03/04/2024 Telephone [facility] Behavioral Health [address] [facility] [address] [place] [address] Jayesh Murillo MD 03/03/2024 12:35 PM PROCESS CONTROL BOARD OPERATOR Lab [address] [address] History of pulmonary hypertension; Dichorionic diamniotic twin , antepartum; Supervision of high-risk , second trimester; Anxiety and depression 03/03/2024 12:34 PM PROCESS CONTROL BOARD OPERATOR - 03/03/2024 11:59 PM PROCESS CONTROL BOARD OPERATOR Hospital Encounter [facility] [address] [place] [address] Screening for malignant neoplasm of the cervix; care, subsequent , first trimester Discharge Disposition: Discharge to home or self care 03/03/2024 11:30 AM PROCESS CONTROL BOARD OPERATOR Clinical Support [facility]s [facility] Gyne[facility] [address] [place] [address] Health 7th [place] [address] 03/03/2024 11:15 AM PROCESS CONTROL BOARD OPERATOR Office Visit [facility] Maternal- Medicine [address] [place] [address] 7th [address] [place] [phone] History of pulmonary hypertension (Primary Dx); Dichorionic diamniotic twin , antepartum; BMI 53; Rh negative state in antepartum period; Supervision of high-risk , second trimester; Anxiety and depression 03/03/2024 9:00 AM PROCESS CONTROL BOARD OPERATOR - 03/03/2024 11:59 PM PROCESS CONTROL BOARD OPERATOR Hospital Encounter [facility] - Ultrasound [address] [place] [address], 7th Floor, [address] [facility] [place] [address] Twin gestation in first trimester, unspecified multiple gestation type; History of pulmonary hypertension; Supervision of high-risk , first trimester Discharge Disposition: Discharge to home or self care 02/21/2024 Telephone [facility] [id number] [place] [address] [place] [phone] Jayesh Murillo MD Med Refill (Venlafaxine ER & Lamictal ) 02/21/2024 Telephone [facility] [address] [facility] [address] [place] [phone] Jayesh Murillo MD 02/06/2024 11:45 AM PROCESS CONTROL BOARD OPERATOR Office Visit [facility] Medical [facility] [address] [place] [phone] Juanis Arita MD care, subsequent in second trimester (Primary Dx); Dichorionic diamniotic twin , antepartum 02/06/2024 11:00 AM PROCESS CONTROL BOARD OPERATOR Ancillary Procedure [facility] [address] [place] [address] Twin gestation in first trimester, unspecified multiple gestation type; 17 weeks gestation of 02/06/2024 10:00 AM PROCESS CONTROL BOARD OPERATOR Ancillary Procedure [facility] [address] [place] [address] Twin gestation in first trimester, unspecified multiple gestation type; 17 weeks gestation of 02/06/2024 Orders Only [facility] [address] [place] [address] Juanis Arita MD History of pulmonary hypertension (Primary Dx) 01/15/2024 11:15 AM PROCESS CONTROL BOARD OPERATOR Routine [facility] [address] [place] [address] Juanis Arita MD care, subsequent , first trimester (Primary Dx); Dichorionic diamniotic twin , antepartum 01/15/2024 Orders Only [facility] [address] [place] [address] Juanis Arita MD Twin gestation in first trimester, unspecified multiple gestation type (Primary Dx); 17 weeks gestation of ; Maternal care for suspected chromosomal abnormality in fetus, single or unspecified fetus; Obesity affecting in second trimester, unspecified obesity type 01/09/2024 7:00 AM PROCESS CONTROL BOARD OPERATOR - 01/09/2024 11:59 PM PROCESS CONTROL BOARD OPERATOR Hospital Encounter [facility] Cardiac Diagnostic Lab [address] [place] [address] [address] [place] [address] Twin gestation in first trimester, unspecified multiple gestation type; History of pulmonary hypertension; Supervision of high-risk , first trimester Discharge Disposition: Discharge to home or self care 12/31/2023 10:30 AM PROCESS CONTROL BOARD OPERATOR Office Visit [facility] Maternal- Medicine [address] [place] [address] Health 7th Floor [address] [place] [phone] Supervision of high-risk , first trimester (Primary Dx); Twin gestation in first trimester, unspecified multiple gestation type; History of pulmonary hypertension 12/31/2023 9:17 AM PROCESS CONTROL BOARD OPERATOR - 12/31/2023 11:59 PM PROCESS CONTROL BOARD OPERATOR Hospital Encounter [facility] - Ultrasound [address] [facility], 7th Floor, [address] [facility] [place] [address] Supervision of high-risk , unspecified trimester Discharge Disposition: Discharge to home or self care from Last 3 Months Immunizations Name Administration Dates Next Due DTP 11/21/1994, 3,06/04/1991,02/10,1990 Hep B, Adolescent or Pediatric 03/29/2001,2000,08/30/2000 HiB 06/04/1991,02/10/1991,1990 Influenza, Quadrivalent, Spl it, Intramuscular 01/14/2018,12/07/2016,02/22/2015 Influenza, Quadrivalent, Spl it, Preservative Free, Intramuscular 11/17/2021,12/23/2020 Influenza, Unspecified 11/20/2019(Deferred: Maryan ent Refused) MMR 07/06/1994,05/25/1992 OPV 11/21/1994, 3,02/10/1991,12/04 Pfizer SARS-CoV-2 Monovalent Vaccination (12+ Yrs) PURPLE 07/16/2020,06/25/2020 Td, adsorbed 08/03/2004 Tdap 02/23/2015 Surgical History Surgery Date Site/Laterality Comments DILATION AND CURETTAGE OF UTERUS 02/19/2010 - 02/18/2011 Miscarriage LAPAROSCOPIC OOPHORECTOMY 02/19/2018 - 02/18/2019 Left Benign 8 cm cystic teratoma Medical History Medical History Date Comments Headache, tension-type Migraine H/O acute pulmonary edema 2012 Postpa rtum. No evidence of cardiomyopathy. Anxiety Lower back pain Ovarian cyst Left Kidney stone Family History Medical History Relation Name Comments Hypertension Father Seizures Father Stroke Father Hypertension Maternal Grandmother Stomach cancer Maternal Grandmother Hypertension Paternal Grandfather Breast cancer Paternal Grandmother Hypertension Paternal Grandmother Seizures Paternal Grandmother Stroke Paternal Grandmother Diabetes Sister Autism Son Relation Name Status Comments Father Maternal Grandmother Paternal Grandfather Paternal Grandmother Sister Son Social History Tobacco Use Types Packs/Day Years [...] any time in the past 12 m [facility], were you homeless or living in a residential (including now)? No 01/15/2024 Estimated Date of Delivery Comme nts Yes 07/19/2024 Based on last me nstrual period of 10/13/2023 (Exact Date) Sex and Gender Information Value Date Recorded Sex Assigned at Not on file Legal Sex Female 12:52 AM PROCESS CONTROL BOARD OPERATOR Gender Identity Female 05/27/2019 9:07 AM CDT Sexual Orientation Choose not to disclose 2023 10:31 AM CDT Occupation Industry Job Start Date Job End Date Not on file Not on file Not on file Not on file Obstetrics History Para Term AB IAB SAB Ectopic Multiple Livin g Live Births 4 2 2 0 1 1 2 2 Date Outcome GA Total Labor Labor/2nd/3rd Weight Sex Type Anes PTL Avery A1 A5 Name Clin 2010 Term 40w0 d 3.317 kg (7 lb 5 oz) M Vag-S pont Living 2010 SAB D&C 2012 Term 41w0 d 4.649 kg (10 lb 4 oz) M Vag-S pont Living Current Comments 1. 2010 - spontaneous labor. FOB #1. 3. 2013 - pitocin induction for post-dates. FOB #2. Readmitted one week for CP, SOB, pulmonary edema. ECHO - EF 60%, moderate pulmonary HTN. BNP 662. 4. Current - FOB #3. Summary Episode Dates Number of Fetuses Estimated Date of Delivery 12/19/2023 - Present (04/01/2024) 07/19/2024 (set by Juanis Arita MD on 12/19/2023 based on Last Menstrual Period on 10/13/2023 (Exact Date)) Dating Summary Based On OCTAVIO GA Diff Last Menstrual Period on 10/13/2023 (Exact Date) 07/19/2024 Working Ultrasound on 12/19/2023 07/19/2024 Same GA:9w4d Comment:Baby A and B both 9w 4d Vitals Pregravid Weight Height TWG (As of 04/01/2024) Pregrav id BMI 147 kg (324 lb) 166.4 cm (5' 5.51 ) 1.724 kg (3 lb 12. 8 oz) 53.08 Date GA Fund Present FHR Mvmt BP Weight Edema Alb Glu Ket Dil/ Eff/Sta 024 9w4d 130/7 8 147 kg (324 lb) 0 024 11w2d Inpatient data not displayed here. See encounter summary. 025 20w2d Inpatient data not displayed here. See encounter summary. 025 24w3d Inpatient data not displayed here. See encounter summary. Notes Progress Notes - Office Visi t - 03/06/2024 - GA:20w5d 03/06/2024 - 20w5d - Juanis Arita MD Reviewed [facility] sono 03/03 - A: breech, anterior placenta, MVP 5.4, EFW 408 g (89%). B: cephalic, anterior placenta, MVP 4.3, EFW 341 g (42%). Discordance 16%. Scheduled for anatomy completion in 2 wks and growth in 4 wks. Per MFM - EKG deferred given normal ECHO. Baseline preE labs 03/03 were WNL - Urine P:Cr 0.095. Cr 0.58, AST 17, ALT 13. Genetic testing is pending (Q- drawn but lab sample error) - plans to go back to lab later today for redraw. Feeling well overall. Plans to check with insurance for maternity support belt. ESS CONTROL BOARD OPERATOR Progress Notes - Office Visi t - 03/03/2024 - GA:20w2d 03/03/2024 - 20w2d - Alysa Guardado MD [facility] Return Consult Visit 03/03/[address] Arita, It was a pleasure meeting again with our mutual patient in continued consultation. Tramaine Shore is a 33 y.o. at 20w2d by who is comanaged with Dr. Arita. Her is complicated by DCDA TIUP, BMI 53, history of pulmonary HTN, Rh negative status, and anxiety/depression. Subjective: She reports feeling well. Denies vaginal bleeding, loss of fluid, contractions. Reports positive movement. Her nausea has now resolved. She reports taking ASA daily. She reports her mood has improved now that she is out of the first trimester. She has continued taking Effexor and Lamictal and has follow-up scheduled with her psychiatrist in about 2 weeks. She reports still feeling down about once per week. She is eating appropriately, denies changes in sleep habits, and is able to perform her ADLs. EPDS 3, denies SI/HI. She had NIPT drawn with her primary OB on 02/17 and is awaiting the results. However, on review of results today (following clinic visit) the NIPT did not result due to sample error. Objective: BP 114/74 (BP Location: Left arm, Patient Position: Sitting) Pulse 86 Ht 166.4 cm (5' 5.51 ) Wt (!) 325 lb (147.4 kg) LMP 10/13/2023 (Exact Date) SpO2 98% BMI 53.24 kg/m General: alert, cooperative, in no distress Heart: regular rate Lungs: non-labored respirations Abdomen: gravid Extremities: warm and well-perfused Ultrasound: 03/03/2024 20w2d Fetus A (maternal left):EFW 408g (63%), breech presentation, MVP 5.4cm, placenta anterior; Fetus B (maternal right): EFW 341g (42%), cephalic presentation, MVP 4.3cm, placenta anterior. TVCL 4.92cm. Visualized anatomy wnl. Please see report for full details. Assessment/Plan: Tramaine Shore is a 33 y.o. at 20w2d with a complicated by DCDA TIUP, BMI 53, history of pulmonary HTN, Rh negative status, and anxiety/depression. Dichorionic diamniotic twin , antepartum Anatomy ultrasound today with AGA growth of [...] 34 weeks per BMI [] Delivery by [id number] or earlier if indicated BMI 53 Anatomy ultrasound today with AGA growth of both fetuses with all visualized anatomy wnl. Recommendations [x] Early A1C - 5.1% [] Baseline PIH labs - CMP, UPC ordered 03/03/2024 [] Anatomy/growths per twins [] Anesthesia consult in third trimester if planned delivery at [facility] for any reason [] Weekly testing starting at 34 weeks given BMI of 40+ Rh negative state in antepartum period Recommendations - Rhogam at 28 weeks and for a post-delivery Rh workup Anxiety and depression EPDS 3 today. Improved mood in second trimester. Continuing on Effexor and Lamictal. Recommendations - Monitor mood every visit - Follow-up with Dr. Murillo scheduled 03/21/24 History of pulmonary hypertension History & Counseling - Readmitted one week [...] with normal EF. - Previously counseled by [facility] Recommendations [x] EKG, okay to defer given echo wnl [x] Maternal echo: normal on 01/09/2024, no further work up needed [x] Further counseling and consideration of cardiology consultation if cardiac diagnosis is made on echo - NA Supervision of high-risk , second trimester [x] Co-management vs. [] Full [facility] Care; [] Red Team [x] Blue Team Referring Provider: Juanis Arita [phone] [] or Medicare Insurance [x] Dating Criteria: [...] at 28 wks (if Rh neg): indicated We will plan to see Tramaine Shore again in 2 weeks of an anatomy completion ultrasound and in 4 weeks for an MFM visit with a growth ultrasound. Thank you again for allowing us to participate in the care of your patient, please do not hesitate to contact our office if you have further questions. Sincerely, Alysa Guardado MD Obstetrics and Gynecology, PGY-3 Cosigned by Riri Ortiz MD at 03/03/2024 5:16 PM PROCESS CONTROL BOARD OPERATOR ESS CONTROL BOARD OPERATOR ESS CONTROL BOARD OPERATOR ESS CONTROL BOARD OPERATOR ESS CONTROL BOARD OPERATOR ESS CONTROL BOARD OPERATOR ESS CONTROL BOARD OPERATOR ESS CONTROL BOARD OPERATOR Associated attestation - Riri Ortiz MD - 03/03/2024 5:16 PM PROCESS CONTROL BOARD OPERATOR Images from the original note were not included. MFM Attending Attestation I have seen and discussed Tramaine Shore with the resident on 03/03/2024. I have evaluated the patient and reviewed the treatment plan and recommendations. I agree with the findings and the plan of care as documented in the note. My total encounter time on 03/03/2024 was 20 minutes which was spent in the activities documented in the note. This includes time spent prior to the visit and after the visit in direct care of the patient. This time does not include time spent in any separately reportable services. Riri Ortiz MD [employer] Division of Maternal- Medicine and Ultrasound Department of Obstetrics and Gynecology [facility] 03/03/2024 Progress Notes - Office Visi t - 02/06/2024 - GA:16w4d 02/06/2024 - 16w4d - Juanis Arita MD Sono today: A cephalic, EFW 168 g (56%), FHR 160. B breech, 158 G (37%), FHR 159 bpm. Feeling well overall. Has not completed labs (NIPT, A1c) or EKG yet - encouraged to do so MANPREET. Anatomy is scheduled with MFM 03/03. ESS CONTROL BOARD OPERATOR Progress Notes - Routine Pre jalen - 01/15/2024 - GA:13w3d 01/15/2024 - w3d - Juanis Arita MD Reviewed OB labs and Pap - Rh negative. Feeling well. No nausea or pain. Reviewed MFM recommendations. ECHO 01/09/24 was normal, EF 67% - no further work up needed. They did recommend baseline EKG as well as A1c, which were ordered today. She has not started ASA 81 mg but plans to now. Scheduled for anatomy with MFM 03/03. Repeat sono here next visit. Reviewed genetic screening option, interpretation in twin pregnancies. She elects for NIPT, which was ordered today. ESS CONTROL BOARD OPERATOR Progress Notes - Office Visi t - 12/31/2023 - GA:11w2d 12/31/2023 - - Jb Castaneda MD Maternal Medicine Consult Note Reason for Consult: History of pulmonary edema with pulmonary hypertension, di-di twins Requesting Provider: Juanis Arita MD Dear Dr. Arita We had the pleasure of seeing your patient Tramaine Shore in our office today. As you know, she is a 33 y.o. at 11w2d here today for a consult regarding pulmonary edema with pulmonary hypertension, di-dit twins. Patient's history was reviewed from outside records and in detail with her during the consultation and is detailed within the respective problems listed below. Today she is doing well, she reports feeling well. Small volume bleeding over the weekend, resolved today. Rh negative, Rhogam not indicated given <12 weeks. Denies cramping. Mild nausea, no emesis. This is an unplanned but desired . Past Medical History: Diagnosis Date Anxiety H/O acute pulmonary edema 2013 . No evidence of cardiomyopathy. Headache, tension-type Kidney stone Lower back pain Migraine Ovarian cyst Left Past Surgical History: Procedure Laterality Date DILATION AND CURETTAGE OF UTERUS 2010 Miscarriage LAPAROSCOPIC OOPHORECTOMY Left 2019 Benign 8 cm cystic teratoma Past Gynecologic History: Prior STIs: denies History of abnormal pap: denies Last pap smear: NSIL, HPV neg 11/2023 Patient's last menstrual period was 10/13/2023 (exact date). Denies history of uterine anomalies or fibroids OB History Para Term AB Living 4 2 2 0 1 2 SAB IAB Ectopic Multiple Live Births 1 2 # Outcome Date GA Lbr Tom/2nd Weight Sex Type Anes PTL Lv 4 Current 3 Term 2012 41w0d 4.649 kg (10 lb 4 oz) M Vag-Spont AVERY 2 SAB 2010 D&C 1 Term 2010 40w0d 3.317 kg (7 lb 5 oz) M Vag-Spont AVERY Obstetric Comments 1. 2010 - spontaneous labor. FOB #1. 3. 2013 - pitocin induction for post-dates. FOB #2. Readmitted one week for CP, SOB, pulmonary edema. ECHO - EF 60%, moderate pulmonary HTN. BNP 662. 4. Current - FOB #3. Current Outpatient Medications Medication Sig Dispense Refill lamoTRIgine (LaMICtal) 25 mg tablet Take 2 tablets by mouth once daily 60 tablet 0 PNV no.95/ferrous fum/folic ac ( ORAL) Take by mouth venlafaxine XR (EFFEXOR-XR) 75 mg 24 hr capsule TAKE 2 CAPSULES BY MOUTH ONCE DAILY WITH BREAKFAST 60 capsule 0 No current facility-administered medications for this visit. Family History: Family History Problem Relation Age of Onset Stroke Father Seizures Father Hypertension Father Diabetes Sister Hypertension Maternal Grandmother Stomach cancer Maternal Grandmother Stroke Paternal Grandmother Seizures Paternal Grandmother Hypertension Paternal Grandmother Breast cancer Paternal Grandmother Hypertension Paternal Grandfather Autism Son Neural tube defects: No Down syndrome or other chromosomal anomalies: Nephew of FOB Hemophilia, sickle cell, bleeding/clotting disorder: No Muscular dystrophy: No Cystic fibrosis: No Intellectual disability or Fragile X: No [place] disease: No Other defects or genetic disorders: No No Known Allergies Social History Tobacco Use Smoking status: Never Smokeless tobacco: Never Substance and Sexual Activity Drug use: No Sexual activity: Yes Partners: Male Alcohol Use: Not on file Works as manager delivery at [employer] Lives with her 2 kids Smoke cigarettes, cigars, E-cigs: No Beer, wine, or liquor: No Street drugs/marijuana: stopped marijuana with positive UPT Dating: OCTAVIO of Estimated Date of Delivery: 07/19/24 based on LMP c/w 9 week ultrasound Review of Systems All review of systems are negative except for as above Physical Exam Vitals BP 133/84 Pulse 80 Ht 166.4 cm (5' 5.5 ) Wt (!) 323 lb (146.5 kg) LMP 10/13/2023 (Exact Date) BMI 52.93 kg/m General: NAD Cardiac: regular rate Pulm: breathing comfortably Abdomen: gravid, non-tender Extremities: trace edema Ultrasound 12/31/2023: 11w2d Dichorionic-diamniotic twin with normal CRL for each today. Please see the separate report for full details Assessment: Ms. Tramaine Shore is a maranda 33 y.o. at 11w2d here today for a consult regarding: Problem Obesity Complicating in First Trimester BMI: 53 Counseling Obesity in is associated with increased risks. Women with obesity are at increased risks of spontaneous , stillbirth, macrosomia and congenital anomalies. During the antepartum period they are at increased risk of cardiac dysfunction, proteinuria, sleep apnea, GDM, and preeclampsia. During labor, women with obesity are at a higher risk for delivery, failed trial of labor, endometritis, wound complications, and venous thrombosis. Discussed with patient the recommended weight gain in , and with a BMI of 30 or greater we recommend a weight gain of 11-20lb Lastly discussed management. Would recommend early glucose screening, specialized anatomy ultrasound with serial growth assessment, and testing. Plan [] Early A1C [] Anatomy/growths per twins [] Anesthesia consult in third trimester if planned delivery at [facility] for any reason [] Weekly testing starting at 34 weeks given BMI of 40+ Supervision of High-Risk , First Trimester [x] Co-management vs. [] Full [facility] Care; [] Red Team [] Blue Team Referring Provider: Juanis Arita [phone] [] or Medicare Insurance [x] Dating Criteria: LMP 10/13/23 with OCTAVIO 07/19/24 [x] Labs: Rh [A-], Ab [negative], Rubella [immune], HIV [non-reactive], HepBSAg [non-reactive], RPR [non-reactive], Hep C [non-reactive], Varicella [positive], GC/CT [negative/negative] [] Aneuploidy: counseled, desires NIPT at primary [] Carrier Screening: [x] CBC/Hgb: 11.4/34.4/plt 266 [] 1st trimester A1C: recommend to be drawn at primary given history of pre- diabetes [x] UCx: 12/19/23: negative [x] Pap: 12/19/23: NILM; HPV negative [] Flu Shot (Oct-Jan): [] COVID [] LD ASA (if indicated) [] EPDS [ ]; PNBHS referral (if indicated) 2nd Tri Labs: [] Anatomy ultrasound: [] CBC/1hr gtt at 24-28wks: [] Tdap (27-36wks): [] Rhogam at 28 wks (if Rh neg): 3rd Tri Labs: [] CBC/HIV/RPR/T&S: [] GBS: [] GC/CT (if indicated): [] testing: [] RSV Counseling [] MOD: [] Place of delivery: [] Last clinic visit SVE: [] IOL start agent: [] Epidural: [] Blood Products [] Consents signed: [] Stop ASA [] MOC: [] Method of feeding: [] Planning Assistant (specifically which provider): [] PP Depression Discussed: Rh Negative State in Antepartum Period Small volume bleeding at 11 weeks (resolved 12/31/23) Discussed if bleeding after 12 weeks, recommend Rhogam administration. However, given early gestational age, it is not necessary today. Plan for Rhogam at 28 weeks and for a post-delivery Rh workup. History of Pulmonary Hypertension History Readmitted one week in 2013 for chest pain, SOB, pulmonary edema with 3+ lower extremity edema. Echo at that time with EF 60%, moderate pulmonary HTN (estimated PASP 50-54). BNP 662. Per cardiology documentation, recommended pulmonary hypertension be reassessed after relief of pulmonary edema. Tramaine has not had cardiology follow- up/echocardiograms since that point. She reports an excellent functional status, able to walk long distances and climb steps. Differential for this event includes pre-eclampsia with severe features by pulmonary edema vs. Peripartum cardiomyopathy, though this is less likely with normal EF. We reviewed this clinical history. I strongly recommended Aspirin 81 mg at 12 weeks to minimize risk of pre-eclampsia. We also recommend an echocardiogram to ensure that pulmonary hypertension has resolved and to assess EF. We reviewed that overall based on history/physical status, I do not suspect she has current heart failure or pulmonary hypertension. However, we briefly reviewed that these findings on echocardiogram would be extremely concerning in and would prompt further MFM consultation/visits to discuss plan of care. Finally, we reviewed that she is at increased risk of pulmonary edema or heart failure in this and reviewed warning signs. Plan: [] Maternal echo [] EKG [] Further counseling and consideration of cardiology consultation if cardiac diagnosis is made on echo Dichorionic Diamniotic Twin , Antepartum I counseled the patient on her diamniotic dichorionic twin . We reviewed that this type of twinning is the most common and lowest risk type of twins. However, twin gestation is associated with an increased risk of and infant morbidity and mortality, generally due to the complications of prematurity. We also discussed that maternal medical complications are also more common in women with twin gestations, including hypertensive disorders of , gestational diabetes, anemia, hemorrhage, delivery, and depression We next reviewed the recommendations for management. I recommend obtaining a specialized anatomic ultrasound between 18-20 weeks with a cervical length, followed by growth ultrasounds every 4 weeks until delivery. Aspirin is recommended for preeclampsia prevention starting at 12 weeks. Should the patient desire screening for aneuploidy, we discussed that cell free DNA is available for screening and discussed the option for amniocentesis. testing per BMI. Delivery is recommended by [id number] in uncomplicated diamniotic dichorionic twin pregnancies. We lastly discussed that mode of delivery is dependent on the presentations of the twins at the time of delivery as well as gestational age, and experience of the clinican performing the delivery. Vaginal can be considered if the presenting twin is vertex. Plan/Summary of recommendations [] Aspirin 81mg per day for preeclampsia prevention starting at 12 weeks gestation [] Specialized anatomic survey with cervical length [] Serial growth ultrasounds every 4 weeks starting at 24 weeks [] testing at 34 weeks per BMI [] Delivery by [id number] or earlier if indicated Anxiety and Depression History: Followed by psychiatrist, Dr. Murillo. Chikaexleighton and Mikie. Counseling 12/31/23 We reviewed depression/anxiety and SSRI/SNRI use in . Generally, the risk of worsening depression or anxiety in is dependent on control prior to . Maternal depression has been associated with increased risk of and IUGR/SGA in some studies.Thus, regular follow-up with a mental health provider is recommended throughout her and . The risks of SSRI exposure have been explored by multiple studies, but the results from these studies are conflicting and limited by confounders. We also discussed a potential association between maternal use of SSRIs in late and the risk of persistent pulmonary hypertension of the (PPHN). We reviewed how studies indicated that there may be a small increase in the risk of PPHN among those who use SSRIs in late , however about 99% of women exposed to one of these medications in late will deliver an unaffected by PPHN. We reviewed the risk of abstinence syndrome but emphasized that this syndrome can be easily managed by the pediatricians, and no penitentiary effects have ever been demonstrated. We discussed that the absolute risks of continuing SSRIs in are small but present and need to be weighed against the potential maternal benefits. Availability of alternative treatment like psychotherapy should also be taken into consideration. Lamictal (lamotrigine) overall has not been associated with increased risk of malformations, although some smaller studies may suggest increased risk of facial and palate clefting, especially when used in high doses or in polytherapy with other anti-epileptic medication. Thus, the lowest effective dose used as monotherapy, if efficient, is recommended, in addition to a specialized anatomical survey at 18- 20 weeks. Due to the increased renal function in , Lamictal may be cleared up to 3 times faster in , resulting in subtherapeutic levels. If mood symptoms worsen, may consider titration of lamictal in . We recommend a taper within the first week to her pre- dose in order to prevent Lamictal toxicity. No adverse effects have been noted in breastfed infants of mothers on Lamictal, and we reviewed that this medication is thus not a contraindication to . We have scheduled her to return for an anatomy ultrasound at 20 weeks with an [facility] visit We ordered echocardiogram and gave Tramaine the information to schedule. If abnormalities are seen on echo, we will plan to see patient sooner. We request CFDNA, HbA1C, and baseline EKG be completed at primary OB office. If EKG is not possible, we can plan to complete on her return to the [facility] for her anatomy ultrasound. Thank you for the opportunity to be involved in the care of your patient. Should you have any further questions or concerns, please do not hesitate to call us. Sincerely, Meme Castaneda MD Fellow Division of Maternal- Medicine Department of Obstetrics and Gynecology [facility] 12/31/2023 Cosigned by Sangita Baltazar MD at 01/01/2024 9:54 AM PROCESS CONTROL BOARD OPERATOR ESS CONTROL BOARD OPERATOR ESS CONTROL BOARD OPERATOR Associated attestation - Sangita Baltazar MD - 01/01/2024 9:54 AM PROCESS CONTROL BOARD OPERATOR I have seen and examined the patient. I agree with the findings and plan of care as documented in the resident/fellow's note. My total encounter time on 12/31/2023 was 35 minutes which was spent in the activities documented in the note. This includes time spent prior to the visit and after the visit in direct care of the patient. This time does not include time spent in any separately reportable services. Progress Notes - Abstract - 12/24/2023 - GA:10w2d 12/24/2023 - 10w2d - Michelle Baig RMA Current OB records are in Epic. Records from 2013 delivery and readmission for pulmonary HTN are in Clinical Desktop. ESS CONTROL BOARD OPERATOR Progress Notes - Initial Pre - 12/19/2023 - GA:9w4d 12/19/2023 - 9w4d - Juanis Arita MD New OB -- OCTAVIO 07/19 by definite LMP c/w sono today showing di-di twins. Feeling well overall. OB labs ordered with Pap, GC/CT. -- Twin - di-di appearance on imaging today. Discussed associated risks including PIH, GDM, PTL, , IUGR. Start ASA 81 mg at 12 weeks. -- Anxiety/depression. Followed by psychiatrist, Dr. Murillo. Mood has been stable on Effexor and Lamictal. Discussed low potential risk of orofacial clefts with Lamictal and NELDA with Effexor v risks of poorly controlled maternal mental health. Continue current management at this time. -- OB history - Readmitted one week after last delivery in 2013 for CP, SOB, pulmonary edema. BNP was 662. No cardiomyopathy with ECHO - EF 60% but did show moderate pulmonary HTN. She denies need for further follow up. MFM referral recommended, and she is agreeable to same. -- Marijuana - use every 2 days to none with . Discussed risks including PTL, IUGR and encouraged continued cessation. Last Filed Vital Signs Vital Sign Reading Time Taken Comments Blood Pressure 100/68 04/01/2024 11:30 AM PROCESS CONTROL BOARD OPERATOR manually Pulse 121 04/01/2024 11:30 AM PROCESS CONTROL BOARD OPERATOR Temperature 36.5 C (97.7 F) 05/23/2022 11:38 AM CDT Respiratory Rate 18 05/23/2022 11:3 8 AM CDT Oxygen Saturation 97% 04/01/2024 11: 30 AM PROCESS CONTROL BOARD OPERATOR Inhaled Oxygen Concentration - - Weight 148.7 kg (327 lb 12.8 oz) 2024 10:24 AM PROCESS CONTROL BOARD OPERATOR Height 166.4 cm (5' 5.51 ) 04/01/2024 1 0:24 AM PROCESS CONTROL BOARD OPERATOR Body Mass Index 53.7 04/01/2024 10:24 AM PROCESS CONTROL BOARD OPERATOR Plan of Treatment Health Maintenance Due Date Last Done Comments Regular Well Visit/Exam 18-64 05/17/2021 05/17/2020 Depression Screening 05/24/2023 05/23/2022, 12/23/2020, 12/23/2020, Additional history exists Covid-19 Vaccine ( season) 2023 01/19/2021, 07/16/2020, 06/25/2020 Influenza Vaccine (#1) 2023 , 12/23/2020, 01/14/2018, Additional history exists Cervical Cancer Screening 12/19/20242023, 12/19/2023, 09/18/2018 DTaP/Tdap/Td Vaccine (7 - Td or Tdap) 02/23/2025 02/23/2015, 08/03/2004, 11/21/1994, Additional history exists Hepatitis B Screening Completed 03/29/2001 , 10/03/2000, 08/30/2000 Hepatitis C Screening Completed 12/19/2023, 021 HPV Vaccines Aged Out No longer eligi ble based on patient's age to complete this topic Pneumococcal vaccine <65 Aged Out No longer eligible based on patient's age to complete this topic Varicella Vaccines Discontinued Procedures Procedure Name Priority Date/Time Associated Diagnosis Comments POCT GLUCOSE Routine 04/01/2024 12:19 PM PROCESS CONTROL BOARD OPERATOR BMI 53 US OB FOLLOW UP Schedule Routine, Read Routine (OP Routine) 04/01/2024 9:36 AM PROCESS CONTROL BOARD OPERATOR History of pulmonary hypertension Dichorionic diamniotic twin , antepartum Supervision of high-risk , second trimester Anxiety and depression POCT URINE GLUCOSE AND PROTEIN Routine 03/06/2024 9:32 AM PROCESS CONTROL BOARD OPERATOR care, subsequent in second trimester PROTEIN / CREATININE RATIO, URINE, RANDOM Routine 03/03/2024 12:34 PM PROCESS CONTROL BOARD OPERATOR History of pulmonary hypertension Dichorionic diamniotic twin , antepartum Supervision of high-risk , second trimester Anxiety and depression EGFR Routine 03/03/2024 12:14 PM PROCESS CONTROL BOARD OPERATOR History of pulmonary hypertension Dichorionic diamniotic twin , antepartum Supervision of high-risk , second trimester Anxiety and depression COMPREHENSIVE METABOLIC PANEL Routine 03/03/2024 12:14 PM PROCESS CONTROL BOARD OPERATOR History of pulmonary hypertension Dichorionic diamniotic twin , antepartum Supervision of high-risk , second trimester Anxiety and depression US OB DETAIL ANATOMY SINGLE OR FIRST GESTATION Schedule Routine, Read Routine (OP Routine) 03/03/2024 9:06 AM PROCESS CONTROL BOARD OPERATOR Twin gestation in first trimester, unspecified multiple gestation type History of pulmonary hypertension Supervision of high-risk , first trimester QNATEL ADVANCED Routine 02/19/2024 1:30 PM PROCESS CONTROL BOARD OPERATOR Twin gestation in first trimester, unspecified multiple gestation type Maternal care for suspected chromosomal abnormality in fetus, single or unspecified fetus HEMOGLOBIN A1C Routine 02/19/2024 1:30 PM PROCESS CONTROL BOARD OPERATOR Obesity affecting in second trimester, unspecified obesity type POCT URINE GLUCOSE AND PROTEIN Routine 02/06/2024 11:07 AM PROCESS CONTROL BOARD OPERATOR care, subsequent in second trimester US OB FOLLOW UP Schedule Routine, Read Routine (OP Routine) 02/06/2024 10:57 AM PROCESS CONTROL BOARD OPERATOR Twin gestation in first trimester, unspecified multiple gestation type 17 weeks gestation of US OB FOLLOW UP Schedule Routine, Read Routine (OP Routine) 02/06/2024 10:57 AM PROCESS CONTROL BOARD OPERATOR Twin gestation in first trimester, unspecified multiple gestation type 17 weeks gestation of POCT URINE GLUCOSE AND PROTEIN Routine 01/15/2024 11:16 AM PROCESS CONTROL BOARD OPERATOR care, subsequent , first trimester TRANSTHORACIC ECHO (TTE) COMPLETE W DOPPLER/CF WO CONTRAST Routine 01/09/2024 8:07 AM PROCESS CONTROL BOARD OPERATOR Twin gestation in first trimester, unspecified multiple gestation type History of pulmonary hypertension Supervision of high-risk , first trimester US OB LIMITED Schedule Routine, Read Routine (OP Routine) 12/31/2023 9:17 AM PROCESS CONTROL BOARD OPERATOR Supervision of high-risk , unspecified trimester PAP AND HIGH RISK HPV, REFLEX TO GENOTYPING Routine 12/20/2023 11:12 AM CDT HEPATITIS C ANTIBODY Routine 12/19/2023 2:49 PM CDT Encounter for supervision of other normal , first trimester 9 weeks gestation of from Last 3 Months or Most Recently Relevant to Health Maintenance Results * POCT glucose (04/01/2024 12:19 PM PROCESS CONTROL BOARD OPERATOR) Glucose Blood, POC 77 mg/dL Blood 04/01/2024 12:1 9 PM PROCESS CONTROL BOARD OPERATOR Edlima Torres NP POINT OF CARE TEST ORDERABLES Final Result * US Ob Follow Up (04/01/2024 9:36 AM PROCESS CONTROL BOARD OPERATOR) Fetus# Fetus1 VIEWPOINT Estimated Weight 767 g&grams VIEWPOINT Placenta Details anterior; previa - no VIEWPOINT Presentation Breech; Maternal left VIEWPOINT Fetus# Fetus2 VIEWPOINT Estimated Weight 709 g&grams VIEWPOINT Placenta Details anterior VIEWPOINT Presentation Vertex; Maternal right VIEWPOINT Anatomical Region Laterality Modality Abdomen N/A Ultrasound 04/01/2024 9:41 AM PROCESS CONTROL BOARD OPERATOR Impressions 04/01/2024 10:34 AM PROCESS CONTROL BOARD OPERATOR DC twins - 24w 3d - interval [...] urine glucose and protein (03/06/2024 9:32 AM PROCESS CONTROL BOARD OPERATOR) Pathologist [facility] Glucose, ur, POC 250.(A) Negative MG/DL Protein, ur, POC Negative Negative Lot Number [id number] Urine 03/06/2024 9:32 AM PROCESS CONTROL BOARD OPERATOR Juanis Arita MD POINT OF CARE TEST OR DERABLES Final Result * Protein / creatinine ratio, urine, random (03/03/2024 12:34 PM PROCESS CONTROL BOARD OPERATOR) Pathologist [facility] Protein, ur, quant 15.4 mg/dL Comment: Interpretive Data No reference range established. Current interpretive data was last revised 2018. Creatinine Ur 161.6 mg/dL [facility] Comment: Interpretive Data No reference range established. Current interpretive data was last revised 2018. Protein/creatinin e ratio 95.3 0.0 - 180.0 mg/g CR [facility] Urine 03/03/2024 12:3 4 PM PROCESS CONTROL BOARD OPERATOR 03/03/2024 2:21 PM PROCESS CONTROL BOARD OPERATOR Riri Ortiz MD LAB URINE ORDERABLES Mary Kay l Result [facility] Department [place] [address] * eGFR (03/03/2024 12:14 PM PROCESS CONTROL BOARD OPERATOR) Pathologist [facility] eGFR >90 >=60 mL/min/1. 73 m2 Comment: [...] reviewed 2020. Blood 03/03/2024 12:1 4 PM PROCESS CONTROL BOARD OPERATOR 03/03/2024 1:44 PM PROCESS CONTROL BOARD OPERATOR us Riri Ortiz MD LAB BLOOD ORDERABLES Mary Kay kelley Result [facility] Department [place] [address] * (ABNORMAL) Comprehensive metabolic panel (03/03/2024 12:14 PM PROCESS CONTROL BOARD OPERATOR) Sodium 140 135 - 145 mmol/L Potassium, pl 4.2 3.3 - 4.9 mmol/L [facility] Chloride 107 97 - 110 mmol/L [facility] CO2 25 22 - 32 mmol/L [facility] Anion gap 8 2 - 15 mmol/L [facility] BUN 5(L) 6 - 25 mg/dL [facility] Creatinine 0.58(L) 0.60 - 1.10 mg/dL [facility] Glucose 81 70 - 199 mg/dL [facility] Comment: Interpretive Data Fasting glucose >/= [...] classification and Diagnosis of Diabetes Diabetes Care 2021; 46: S19-S40. Current interpretive data was last revised 2022. Calcium 9.6 8.5 - 10.3 mg/dL [facility] Bilirubin, total 0.3 0.1 - 1.2 mg/dL [facility] Protein, pl 7.2 6.5 - 8.5 g/dL [facility] Albumin 3.7 3.5 - 5.0 g/dL [facility] Alk phos 79 40 - 130 Units/L [facility] ALT 13 7 - 45 Units/L [facility] AST 17 10 - 45 Units/L [facility] Blood 03/03/2024 12:1 4 PM PROCESS CONTROL BOARD OPERATOR 03/03/2024 1:40 PM PROCESS CONTROL BOARD OPERATOR us Riri Ortiz MD LAB BLOOD ORDERABLES Mary Kay kelley Result [facility] Department [place] [address] * US Ob Detail Anatomy Single Or First Gestation (03/03/2024 9:06 AM PROCESS CONTROL BOARD OPERATOR) Fetus# Fetus1 VIEWPOINT Estimated Weight 408 g&grams VIEWPOINT Placenta Details anterior VIEWPOINT Presentation Breech; Maternal left VIEWPOINT Fetus# Fetus2 VIEWPOINT Estimated Weight 341 g&grams VIEWPOINT Placenta Details anterior VIEWPOINT Presentation Vertex; Maternal right VIEWPOINT Anatomical Region Laterality Modality Body N/A Ultrasound 03/03/2024 9:34 AM PROCESS CONTROL BOARD OPERATOR Impressions 03/04/2024 11:34 AM PROCESS CONTROL BOARD OPERATOR DCDA Twin IUp at 20 weeks and [...] Final Result * QNatelaAdvanced (02/19/2024 1:30 PM PROCESS CONTROL BOARD OPERATOR) Number of fetuses 2 [facility], Down syndrome risk, maternal age NOT GIVEN [facility], Abnormal Grace? NOT GIVEN [facility], Abnormal Us? NOT GIVEN [facility], History, personal/family NOT GIVEN [facility], test, interpretation TNP [facility], Comment: TEST(S) NOT PERFORMED: INTERPRETATION TRISOMY 21 [...] required for testing. Blood 02/19/2024 1:30 PM PROCESS CONTROL BOARD OPERATOR 02/19/2024 1:32 PM PROCESS CONTROL BOARD OPERATOR us Juanis Arita MD LAB GENETIC TESTING F inal Result [facility], [address] [place] [address] * Hemoglobin A1c (02/19/2024 1:30 PM PROCESS CONTROL BOARD OPERATOR) Hgb A1C 5.1 <5.7 % of total Hgb [facility] Comment: For the purpose of screening for the presence of diabetes: <5.7% Consistent with the absence of diabetes 5.7-6.4% Consistent with increased risk for diabetes (prediabetes) > or =6.5% Consistent with diabetes This assay result is consistent with a decreased risk of diabetes. Currently, no consensus exists regarding use of hemoglobin A1c for diagnosis of diabetes in children. According to [place] Diabetes Association (ADA) guidelines, hemoglobin A1c <7.0% represents optimal control in non- diabetic patients. Different metrics may apply to specific patient populations. Standards of Medical Care in Diabetes(ADA). Blood 02/19/2024 1:3 0 PM PROCESS CONTROL BOARD OPERATOR 02/19/2024 1:32 PM PROCESS CONTROL BOARD OPERATOR Juanis Arita MD LAB BLOOD ORDERABLES Final Result [facility] [address] [place] [address] * POCT urine glucose and protein (02/06/2024 11:07 AM PROCESS CONTROL BOARD OPERATOR) Glucose, ur, POC Negative Negative MG/DL Protein, ur, POC Negative Negative Lot Number [id number] Urine 02/06/2024 11:0 7 AM PROCESS CONTROL BOARD OPERATOR Juanis Arita MD POINT OF CARE TEST OR DERABLES Final Result * US Ob Follow Up (02/06/2024 10:57 AM PROCESS CONTROL BOARD OPERATOR) Anatomical Region Laterality Modality Abdomen N/A Ultrasound 02/12/2024 3:00 PM PROCESS CONTROL BOARD OPERATOR Narrative 02/12/2024 3:01 PM PROCESS CONTROL BOARD OPERATOR EXAM DESCRIPTION: US OB FOLLOW UP REASON [...] Mehta M.D. LD: JOSE RAFAEL Report ID: [id number] [place] Location: [id number] Procedure Note Ratna Mehta MD - 02/12/2024 [...] Mehta M.D. LD: JOSE RAFAEL Report ID: [id number] [place] Location: [id number] us Juanis Arita MD IMG OB US PROCEDURES Final Result * US Ob Follow Up (02/06/2024 10:57 AM PROCESS CONTROL BOARD OPERATOR) Anatomical Region Laterality Modality Abdomen N/A Ultrasound 02/12/2024 2:22 PM PROCESS CONTROL BOARD OPERATOR Narrative 02/12/2024 3:00 PM PROCESS CONTROL BOARD OPERATOR EXAM DESCRIPTION: US OB FOLLOW UP REASON [...] Mehta M.D. LD: JOSE RAFAEL Report ID: [id number] [place] Location: [id number] Procedure Note Ratna Mehta MD - 02/12/2024 [...] Mehta M.D. LD: JOSE RAFAEL Report ID: [id number] [place] Location: [id number] Juanis Arita MD IMG OB US PROCEDURES Final Result * POCT urine glucose and protein (01/15/2024 11:16 AM PROCESS CONTROL BOARD OPERATOR) Glucose, ur, POC Negative Negative MG/DL Protein, ur, POC Negative Negative Lot Number [id number] Urine 01/15/2024 11:1 6 AM PROCESS CONTROL BOARD OPERATOR Juanis Arita MD POINT OF CARE TEST OR DERABLES Final Result * TRANSTHORACIC ECHO (TTE) COMPLETE W DOPPLER/CF WO CONTRAST (01/09/2024 8:07 AM PROCESS CONTROL BOARD OPERATOR) Pathologist [facility] LV EF 67 % CARDIOREPORT Anatomical Region Laterality Modality Ultrasound 01/09/2024 7:00 AM PROCESS CONTROL BOARD OPERATOR Narrative 01/10/2024 10:51 AM PROCESS CONTROL BOARD OPERATOR Patient name: Tramaine Shore Date of test: 01/09/2024 Type of test: TTE w/Doppler Hospital #: 0 Date of : 1990 (F) Cashier Host/Hostess: Monica Rodriguez RDCS Referring Physician: SANGITA BALTAZAR MD Contrast Agent: Contrast Administered by: Supervised/Interpreted by: Mejia Pantoja MD Diagnosis: Location: [facility] Reason for test: twin gestation [...] 2=Hypo 3=Akinetic 4=Dyskin./Aneurysm 0=Not visualized) Parasternal Long Krum:MAS=1 BAS=1 MIL=1 EUFEMIA=1 Parasternal Short Krum:MAS=1 MIS=1 FL=1 MIL=1 MAL=1 MA=1 Apical 4 Chambers:=1 MIS=1 BIS=1 BAL=1 MAL=1 AL=1 AC=1 Apical 2 Chambers:AI=1 FL=1 BI=1 BA=1 MA=1 AA=1 AC=1 LV Global [...] MD By signing this report, the attending entry level electrician certifies that he or she has personally supervised and interpreted the echocardiogram and has reviewed and or edited and agrees with the written comments contained within the report. Procedure Note Mejia Pantoja MD - 01/10/2024 Patient name: Tramaine Shore Date of test: 01/09/2024 Type of test: E /[facility] #: 0 Date of : 1990 (F) Cashier Host/Hostess: Monica Rodriguez RDCS Referring Physician: SANGITA BALTAZAR MD Contrast Agent: Contrast Administered by: Supervised/Interpreted by: Mejia Pantoja MD Diagnosis: Location: [facility] Reason for test: twin gestation [...] 2=Hypo 3=Akinetic 4=Dyskin./Aneurysm 0=Not visualized) Parasternal Long Krum:MAS=1 BAS=1 MIL=1 EUFEMIA=1 Parasternal Short Krum:MAS=1 MIS=1 FL=1 MIL=1 MAL=1 MA=1 Apical 4 Chambers:=1 MIS=1 BIS=1 BAL=1 MAL=1 AL=1 AC=1 Apical 2 Chambers:AI=1 FL=1 BI=1 BA=1 MA=1 AA=1 AC=1 LV Global [...] MD By signing this report, the attending entry level electrician certifies that he or she has personally supervised and interpreted the echocardiogram and has reviewed and or edited and agrees with the written comments contained within the report. us Sangita Baltazar MD CV ECHO PROCEDURE S Final Result * US Ob Limited (12/31/2023 9:17 AM PROCESS CONTROL BOARD OPERATOR) Fetus# Fetus1 VIEWPOINT Placenta Details anterior VIEWPOINT Fetus# Fetus2 VIEWPOINT Placenta Details anterior VIEWPOINT Anatomical Region Laterality Modality Abdomen N/A Ultrasound 12/31/2023 9:1 8 AM PROCESS CONTROL BOARD OPERATOR Impressions 12/31/2023 10:08 AM PROCESS CONTROL BOARD OPERATOR Dichorionic-diamniotic twin with normal CRL for each [...] 11:12 AM CDT Narrative 12/24/2023 12:59 PM PROCESS CONTROL BOARD OPERATOR [facility] Department of Pathology [address] [place] [address] Final Report with Addendum Note to Patients: [...] the details. Patient Name: TRAMAINE SHORE Address: [address] [place] [address] Gender: F : 1990 (Age: 33) Service: Location: N : [id number] [facility] #: [id number] Patient Type: [facility] SPECIMEN Taken: 12/20/2023 Received: 12/20/2023 Accessioned:: 12/21/2023 [...] this test have been verified by the [facility] Molecular Infectious Disease laboratory. Correlate with reported cytology results, as applicable. Interpretive data last revised 22 RUPA Carter(ASCP)Report Electronically Reviewed and Signed Out By RUPA Carter(ASCP) 12/24/2023 12:50:33 Specimen(s) Received: A: SCREENING THIN [...] determined by the Surgical Pathology Department at [facility] as part of an ongoing software quality tester program and in compliance with federally mandated [...] characteristics determined by the Surgical Pathology Department [facility]. It has not been cleared or approved [...] last revised on 2019. Testing performed by: [facility], [address] [place] [address]., [id number] Blood 12/19/2023 2:49 PM CDT 12/19/2023 9:16 PM CDT Juanis Arita MD LAB MICROBIOLOGY - NERAL ORDERABLES Final Result Performing Organization Address City/State/[facility] Co de Phone Number [facility] [address] [facility] Department [place] [address] from Last 3 Months or Most Recently Relevant to Health Maintenance Insurance [employer] HEALTHCARE [employer] HE[employer] HEALTHCARE PPO Care Teams Adviser Sales Relationship Specialty Start Date End Date Marcy Ho DO [address] [place] [address] PCP - General Family Medicine 12/06/23
--- OUTSIDE RECORDS SUMMARY | 2024-04-01 15:27 | XMS_ITS | Encounter Summary ---
Author Organization [facility] Healthcare Address [address] [place] [address] Care Team Providers Care Air Compressor Mechanic Name Role Phone HoMarcysky CHOE Primary Care Provider [phone]- [phone] Reason for Referral * Diagnostic Imaging (Routine) - Closed Specialty Diagnoses / Procedures Referred By Kenya mcnamara Referred To Contact Diagnoses History of pulmonary hypertension Dichorionic diamniotic twin , antepartum Supervision of high-risk , second trimester Anxiety and depression Procedures US Ob Follow Up Juanis Arita MD [address] [place] [address] Phone: tel: fax: [facility] (All Locations) Referral ID Status Reason Start Date Expiration Date Visits Re quested Visits Authorized [id number] Closed 03/03/2024 04/02/2025 1 1 WASH ATTENDANT AUTOMATIC Reason for Visit * Diagnostic Imaging (Routine) - Closed Specialty Diagnoses / Procedures Referred By Kenya mcnamara Referred To Contact Diagnoses History of pulmonary hypertension Dichorionic diamniotic twin , antepartum Supervision of high-risk , second trimester Anxiety and depression Procedures US Ob Follow Up Juanis Arita MD [address] [place] [address] Phone: tel: fax: [facility] (All Locations) Referral ID Status Reason Start Date Expiration Date Visits Re quested Visits Authorized [id number] Closed 03/03/2024 04/02/2025 1 1 Encounter Details Date Type Department Care Team (Latest Contact Info) Description 04/01/2024 9:36 AM CAR WASH ATTENDANT AUTOMATIC Hospital Encounter [facility] [address] [facility], 7th [address], [address] [facility] [place] [address] History of pulmonary hypertension; Dichorionic diamniotic twin , antepartum; Supervision of high-risk , second trimester; Anxiety and depression Social History Tobacco Use Types Packs/Day Years Used Date Smoking Tobacco: Never Smokeless Tobacco: Never Alcohol Use Standard Drinks/Week Comments No 0 [...] any time in the past 12 m [facility], were you homeless or living in a [facility] (including now)? No 01/15/2024 Estimated Date of Delivery Comme nts Yes 07/19/2024 Based on last me nstrual period of 10/13/2023 (Exact Date) Sex and Gender Information Value Date Recorded Sex Assigned at Not on file Legal Sex Female 12:52 AM CAR WASH ATTENDANT AUTOMATIC Gender Identity Female 05/27/2019 9:07 AM CDT Sexual Orientation Choose not to disclose 2023 10:31 AM CDT Occupation Industry Job Start Date Job End Date Not on file Not on file Not on file Not on file documented as of this encounter Plan of Treatment Not on file documented as of this encounter Procedures Procedure Name Priority Date/Time Associated Diagnosis Comments US OB FOLLOW UP Schedule Routine, Read Routine (OP Routine) 04/01/2024 9:36 AM CAR WASH ATTENDANT AUTOMATIC History of pulmonary hypertension Dichorionic diamniotic twin , antepartum Supervision of high-risk , second trimester Anxiety and depression documented in this encounter Results * US Ob Follow Up (04/01/2024 9:36 AM CAR WASH ATTENDANT AUTOMATIC) Fetus# Fetus1 VIEWPOINT Estimated Weight 767 g&grams VIEWPOINT Placenta Details anterior; previa - no VIEWPOINT Presentation Breech; Maternal left VIEWPOINT Fetus# Fetus2 VIEWPOINT Estimated Weight 709 g&grams VIEWPOINT Placenta Details anterior VIEWPOINT Presentation Vertex; Maternal right VIEWPOINT Anatomical Region Laterality Modality Abdomen N/A Ultrasound 04/01/2024 9:41 AM CAR WASH ATTENDANT AUTOMATIC Impressions 04/01/2024 10:34 AM CAR WASH ATTENDANT AUTOMATIC DC twins - 24w 3d - interval [...] 1 is low/Breech. Tw 2 is high/VTX. us Juanis Arita MD IMG OB US PROCEDURES Final Result documented in this encounter Visit Diagnoses Diagnosis History of pulmonary hypertension Personal history of other diseases of circulatory system Dichorionic diamniotic twin , antepartum Supervision of high-risk , second trimester Anxiety and depression documented in this encounter Care Teams Air Compressor Mechanic Relationship Specialty Start Date End Date Marcy Ho DO [address] [place] [place] [address] PCP - General Family Medicine 12/06/23 documented as of this encounter
--- OUTSIDE RECORDS SUMMARY | 2024-04-01 15:27 | XMS_ITS | Encounter Summary ---
Author Organization [facility] Address [address] [place] [address] Phone Care Team Providers Care Video Production Intern Name Role Phone VicMarcy Naresh CHOE Primary Care Provider +1- [phone] Reason for Referral * Diagnostic Imaging (Routine) - Pending Review Specialty Diagnoses / Procedures Referred By Kenya mcnamara Referred To Contact Diagnoses Severe obesity due to excess calories affecting in second trimester (HCC) Dichorionic diamniotic twin , antepartum Procedures US Ob Follow Up Edilma Torres NP [address] [facility] [id number] [place] [address] Phone: tel: fax: [facility] (All Locations) Referral ID Status Reason Start Date Expiration Date V isits Requested Visits Authorized [id number] Pending Review 04/01/2024 05/01/2025 1 1 LL PERFORMER Reason for Visit * Reason Comments High Risk Gestation Encounter Details Date Type Department Care Team (Late st Contact Info) Description 04/01/2024 11:20 AM THRILL PERFORMER [facility] [address] [facility] 7th [address] [place] [address] Anxiety and depression (Primary Dx); BMI 53; Dichorionic diamniotic twin , antepartum; History of pulmonary hypertension; Rh negative state in antepartum period; Supervision of high-risk , second trimester Social History Tobacco Use Types Packs/Day Years [...] any time in the past 12 m [facility], were you homeless or living in a [place] [facility] (including now)? No 01/15/2024 Estimated Date of Delivery Comme nts Yes 07/19/2024 Based on last me nstrual period of 10/13/2023 (Exact Date) Sex and Gender Information Value Date Recorded Sex Assigned at Not on file Legal Sex Female 12:52 AM THRILL PERFORMER Gender Identity Female 05/27/2019 9:07 AM CDT Sexual Orientation Choose not to disclose 2023 10:31 AM CDT Occupation Industry Job Start Date Job End Date Not on file Not on file Not on file Not on file documented as of this encounter Last Filed Vital Signs Vital Sign [place] Time Taken Comments Blood Pressure 100/68 04/01/2024 11:30 AM THRILL PERFORMER manually Pulse 121 04/01/2024 11:30 AM THRILL PERFORMER Temperature - - Respiratory Rate - - Oxygen Saturation 97% 04/01/2024 11: 30 AM THRILL PERFORMER Inhaled Oxygen Concentration - - Weight 148.7 kg (327 lb 12.8 oz) 2024 10:24 AM THRILL PERFORMER Height 166.4 cm (5' 5.51 ) 04/01/2024 1 0:24 AM THRILL PERFORMER Body Mass Index 53.7 04/01/2024 10:24 AM THRILL PERFORMER documented in this encounter Plan of Treatment Scheduled Orders Name Type Priority Associated Diagnoses Orde r Schedule US Ob Follow Up Imaging Schedule Routine , Read Routine (OP Routine) BMI 53 Dichorionic diamniotic twin , antepartum Expected: 04/01/2024, Expires: 04/01/2025 documented as of this encounter Procedures Procedure Name Priority Date/Time Associated Diagnosis Comments POCT GLUCOSE Routine 04/01/2024 12:19 PM THRILL PERFORMER BMI 53 documented in this encounter Results * POCT glucose (04/01/2024 12:19 PM THRILL PERFORMER) Glucose Blood, POC 77 mg/dL Blood 04/01/2024 12:1 9 PM THRILL PERFORMER Edilma Torres NP POINT OF CARE TEST ORDERABLES Final Result documented in this encounter Visit Diagnoses Diagnosis Anxiety and depression- Primary BMI 53 Dichorionic diamniotic twin , antepartum History of pulmonary hypertension Personal history of other diseases of circulatory system Rh negative state in antepartum period Supervision of high-risk , second trimester documented in this encounter Discontinued Medications Medication Sig Discontinue Reason Start Date End Da te venlafaxine XR (EFFEXOR-XR) 75 mg 24 hr capsule TAKE 2 CAPSULES BY MOUTH ONCE DAILY WITH BREAKFAST Therapy completed 02/28/2024 04/01/2024 documented as of this encounter Care Teams Video Production Intern Relationship Specialty Start Date End Date Marcy Ho DO [address] [place] [address] PCP - General Family Medicine 12/06/23 documented as of this encounter
--- OUTSIDE RECORDS SUMMARY | 2024-04-01 15:27 | XMS_ITS | Encounter Summary ---
Author Organization [facility] Healthcare Address [address] [place] [address] Care Team Providers Care Athletic Equipment Custodian Name Role Phone Marcy Ho DO Primary Care Provider +1- [phone] Marcy Ho DO Primary Care Provider +1- [phone] Encounter Details Date Type Department Care Team ([facility] Contact Info) Description 05/21/2020 Telephone [facility] [address] [facility] A, [facility] [address] [place] [address] Yariel Alarcon MD [address] [place] [address] [address] [place] [address] Social History Tobacco Use Types Packs/Day Years Used Date Smoking Tobacco: Never Smokeless Tobacco: Never Alcohol Use Standard Drinks/Week Comments No 0 (1 standard drink = 0.6 oz pur e alcohol) PHQ-2 Answer Date Recorded PHQ-2 Total Score (If total score is 3 or more points, staff should administer the PHQ-9) 0 05/17/2020 Comments No Sex and Gender Information Value Date Recorded Sex Assigned at Not on file Legal Sex Female 12:52 AM MANUFACTURING WEAVER Gender Identity Female 05/27/2019 9:07 AM CDT Sexual Orientation Choose not to disclose 2023 10:31 AM CDT Occupation Industry Job Start Date Job End Date Not on file Not on file Not on file Not on file documented as of this encounter Plan of Treatment Not on file documented as of this encounter Visit Diagnoses Not on filedocumented in this encounter Care Teams Athletic Equipment Custodian Relationship Specialty Start Date End Date Marcy Ho DO PCP - General Family Medicine 05/26/19 11/29/23 Marcy Ho DO [address] [place] [address] PCP - General Family Medicine 12/06/23 documented as of this encounter
--- OUTSIDE RECORDS SUMMARY | 2024-04-01 15:27 | XMS_ITS | Data Portability ---
Author Organization [facility] Address [address] [place] [address] Care Team Providers Care Stage Electrician Name Role Phone LEAH HERMAN Primary Care Provider Unavailabl e Assessment No assessment recorded. Plan of Treatment Reminders Order Date Submit Date Provider Last Modified By Organization Details Last Modified Time Details Appointments None recorded . Lab None recorded . Referral physical therapy back referral - Please call pt to schedule appointm ent, [facility] [address] , [place], [address], 8 09:06:38 pain manageme nt referral - Please call pt to schedule appointm ent, Thank you 2018 019 [facility], [address] [facility], [place], [address], 9 08:48:12 Procedures None recorded . Surgeries None recorded . Imaging None recorded . Medication Orders citalopr am 20 mg tablet 2017 018 INTERFACE [facility] #[id number], [address], [place], [place], [id number], 8 11:51:57 metronid azole 500 mg tablet 2017 018 [id number], [address], [place], [place], [id number], 9 10:04:10 citalopr am 20 mg tablet 2017 018 INTERFACE Not available 8 16:07:16 Lactobac illus acidophi lee 1 billion cell tablet 2018 019 [email or web address] Not available 9 11:47:23 amitript yline 10 mg tablet 2018 019 [email or web address] Not available 9 11:47:56 lactulos e 10 gram/15 mL oral solution 2018 019 [email or web address] Not available 9 08:48:10 polymyxi n B sulfate 10,000 unit-tri methopri m 1 mg/mL eye drops 2018 019 INTERFACE Not available 9 09:09:17 Patient TargetsNo targets recorded. Patient Instructions Encounter Date Encounter Id Patient Instructions Last Modified By Organization Details Last Modified Time 04/11/2017 [id number] work on weight loss through diet & exercise to help relieve back pain [email or web address] Not available 04/11/2017 12:48:07 01/14/2018 [id number] gas and bloating : care instructions [email or web address] Not available 01/14/2018 16:08:52 Reason for Referral Please call pt to schedule a ppointment, Thank you Referring Physician: Leah Herman, Internal Medicine, Encounter Date: 04/11/2017 Pain Management Referral for Low back pain left SI joint pain Please call pt to schedule appointment, Thank you Referring Physician: Leah Herman Internal Medicine, Encounter Date: 04/25/2018 Results Created Date Observation Date Name Description Value Unit Range Abnormal Flag Note LastModifiedBy Organization Detail LastModifiedTime 06/21/19 19 06/20/2018 urina lysis compl ete, refle x cultu re specific gravity 1.023 1.005- 1.030 Not Available [facility] ([facility]) [address] [facility], [place], [address], 06/21/2018 06:16:04 06/21/19 19 06/20/2018 urina lysis compl ete, refle x cultu re pH 6.5 5.0-7. 5 Not Available [facility] ([facility]) [address] [place], [address], 06/21/2018 06:16:04 06/21/19 19 06/20/2018 urina lysis compl ete, refle x cultu re urine-color Yellow yellow Not Available [facility] ([facility]) [address] [place], [address], 06/21/2018 06:16:04 06/21/1906/20/2018 urina lysis compl ete, refle x cultu re appearance Clear clear Not Available [facility] ([facility]) [address] [place], [address], 06/21/2018 06:16:04 06/21/19 19 06/20/2018 urina lysis compl ete, refle x cultu re WBC esterase Negati ve negati ve Not Available [facility] ([facility]) [address] [place], [address], 06/21/2018 06:16:04 06/21/1906/20/2018 urina lysis compl ete, refle x cultu re protein Negati ve negati ve/tra ce Not Available [facility] ([facility]) [address] [place], [address], 06/21/2018 06:16:04 06/21/1906/20/2018 urina lysis compl ete, refle x cultu re glucose Negati ve negati ve Not Available [facility] ([facility]) [address] [place], [address], 06/21/2018 06:16:04 06/21/1906/20/2018 urina lysis compl ete, refle x cultu re ketones Negati ve negati ve Not Available [facility] ([facility]) [address] [place], [address], 06/21/2018 06:16:04 06/21/19 19 06/20/2018 urina lysis compl ete, refle x cultu re occult blood Negati ve negati ve Not Available [facility] ([facility]) [address] [place], [address], 06/21/2018 06:16:04 06/21/19 19 06/20/2018 urina lysis compl ete, refle x cultu re bilirubin Negati ve negati ve Not Available [facility] ([facility]) [address] [place], [address], 06/21/2018 06:16:04 06/21/1906/20/2018 urina lysis compl ete, refle x cultu re urobilinogen ,semi-qn 0.2 mg/dL 0.2-1. 0 Not Available [facility] ([facility]) [address] [place], [address], 06/21/2018 06:16:04 06/21/1906/20/2018 urina lysis compl ete, refle x cultu re nitrite, urine Negati ve negati ve Not Available [facility] ([facility]) [address] [place], [address], 06/21/2018 06:16:04 06/21/1906/20/2018 urina lysis compl ete, refle x cultu re microscopic examination Commen t Micro scopi c follo ws if indic ated. Not Available [facility] ([facility]) [address] [place], [address], 06/21/2018 06:16:04 06/21/1906/20/2018 urina lysis compl ete, refle x cultu re microscopic examination See below: Micro scopi c was indic ated and was perfo rmed. Not Available [facility] ([facility]) [address] [place], [address], 06/21/2018 06:16:04 06/21/19 19 06/21/2018 urina lysis compl ete, refle x cultu re WBC 0-5 /hpf 0 - 5 Not Available [facility] ([facility]) [address] [place], [address], 06/21/2018 06:16:04 06/21/19 19 06/21/2018 urina lysis compl ete, refle x cultu re RBC 0-2 /hpf 0 - 2 Not Available [facility] ([facility]) [address] [place], [address], 06/21/2018 06:16:04 06/21/19 19 06/21/2018 urina lysis compl ete, refle x cultu re epithelial cells (non renal) 0-10 /hpf 0 - 10 Not Available [facility] ([facility]) [address] [place], [address], 06/21/2018 06:16:04 06/21/19 19 06/21/2018 urina lysis compl ete, refle x cultu re epithelial cells (renal) ENVIRONMENT FRIENDLY LANDSCAPE DESIGNER Not Available [facility] ([facility]) [address] [place], [address], 06/21/2018 06:16:04 06/21/19 19 06/21/2018 urina lysis compl ete, refle x cultu re casts ENVIRONMENT FRIENDLY LANDSCAPE DESIGNER Not Available [facility] ([facility]) [address] [place], [address], 06/21/2018 06:16:04 06/21/19 19 06/21/2018 urina lysis compl ete, refle x cultu re cast type ENVIRONMENT FRIENDLY LANDSCAPE DESIGNER Not Available [facility] ([facility]) [address] [place], [address], 06/21/2018 06:16:04 06/21/19 19 06/21/2018 urina lysis compl ete, refle x cultu re crystals ENVIRONMENT FRIENDLY LANDSCAPE DESIGNER Not Available [facility] ([facility]) [address] [facility], [place], [address], 06/21/2018 06:16:04 06/21/1906/21/2018 urina lysis compl ete, refle x cultu re crystal type ENVIRONMENT FRIENDLY LANDSCAPE DESIGNER Not Available [facility] ([facility]) [address] [facility], [place], [address], 06/21/2018 06:16:04 06/21/1906/21/2018 urina lysis compl ete, refle x cultu re mucus threads Presen t not estab. Not Available [facility] ([facility]) [address] [place], [address], 06/21/2018 06:16:04 06/21/1906/21/2018 urina lysis compl ete, refle x cultu re bacteria Few none seen/f ew Not Available [facility] ([facility]) [address] [place], [address], 06/21/2018 06:16:04 06/21/19 19 06/21/2018 urina lysis compl ete, refle x cultu re yeast ENVIRONMENT FRIENDLY LANDSCAPE DESIGNER Not Available [facility] ([facility]) [address] [place], [address], 06/21/2018 06:16:04 06/21/19 19 06/21/2018 urina lysis compl ete, refle x cultu re trichomonas ENVIRONMENT FRIENDLY LANDSCAPE DESIGNER Not Available [facility] ([facility]) [address] [place], [address], 06/21/2018 06:16:04 06/21/1906/21/2018 urina lysis compl ete, refle x cultu re comment ENVIRONMENT FRIENDLY LANDSCAPE DESIGNER Not Available [facility] ([facility]) [address] [place], [address], 06/21/2018 06:16:04 06/21/1906/21/2018 urina lysis compl ete, refle x cultu re urinalysis reflex Commen t This speci men will not refle x to a Urine Cultu re. Not Available [facility] ([facility]) [address], [place], [address], 06/21/2018 06:16:04 06/13/19 19 05/28/2018 XR, lumba r spine No observ ation record ed. [email or web address] [facility] [address] [place], [address], 06/13/2018 08:35:06 06/19/19 19 06/18/2018 sacro iliac joint injec tion (PROC ) No observ ation record ed. [email or web address] [facility] [address] [place], [address], 06/18/2018 17:10:58 Result Notes None recorded. Problems Name Problem SNOMED Code Status Onset Date Resolution Date Notes Provider Name and Address Organization Details Recorded Time Anxiety 11910958 Active SAMAN Regalado, [facility] 6 14:14:17 Obese 282597371 Active SAMAN Regalado, [facility] 6 14:14:17 Headache 72785952 Active John Garcia null, [facility] 6 14:38:46 Low back pain 145218077 Active 017 Leah Herman PA-C Attn: Accounting ,[address] [place], [address] , [facility] 7 11:47:48 Problem Notes None recorded. Procedures Surgical History Date Name Laterality Status Provider Name and Address Organization Details Recorded Time 7 Tooth root removal completed Leah Herman PA-C Attn: Accounting, [address] [place], [address], [facility] 05/01/2016 13:22:31 1 Dilation and Curettage completed dT Gauthier [place] [facility] 02/22/2015 09:06:03 Imaging Results Imaging Date Name Status LastModified by Organiz ation Details LastModified Time 05/28/2018 [facility] [address] [place], [address], 06/13/2018 08:35:06 06/18/2018 sac[facility]iliac [facility] (PROC) [email or web address] [address] [place], [address], 06/18/2018 17:10:58 Procedure Notes None recorded. Medical Equipment None Reported. Allergies No known drug allergies Medications Name Sig Start Date Stop Date Status Note LastModified by Organization Details LastModified Time cyclobenza sanhtosh 10 mg tablet Take 1/2 to 1 tablet by mouth at bedtime as needed for headache . 07/04 completed Not Available Not Available Not Available prednisone 10 mg tablet active Not Available Not Available Not Available azithromyc in 250 mg tablet active Not Available Not Available Not Available ibuprofen 800 mg tablet TAKE 1 TABLET BY MOUTH THREE TIMES DAILY NEEDED 08/29 completed Not Available Not Available Not Available citalopram 10 mg tablet TAKE 1 TABLET(S ) EVERY DAY BY ORAL ROUTE. 05/22 completed Not Available Not Available Not Available ranitidine 300 mg tablet Take 1 tablet every day by oral route at bedtime. active prn Not Available Not Available No t Available sumatripta n 100 mg tablet Take 1 tablet every day by oral route as directed . 05/01 completed Not Available Not Available Not Available hydrocodon e 5 mg-acetami nophen 325 mg tablet pt stated she does not take this med 07/04 completed Not Available Not Available Not Available prednisone 20 mg tablet Take 3 tablets every day by oral route for 7 days. 07/04 completed Not Available Not Available Not Available metronidaz ole 500 mg tablet Take 1 tablet every 8 hours by oral route for 10 days. 04/25 completed Not Available Not Available Not Available acetaminop hen 300 mg-codeine 30 mg tablet active Not Available Not Available Not Available tramadol 50 mg tablet 06/22 completed Not Available Not Available Not Available amoxicilli n 875 mg tablet active Not Available Not Available Not Available citalopram 20 mg tablet TAKE ONE TABLET BY MOUTH EVERY DAY 2018 active Not Available Not Available Not Avai lable amitriptyl ine 10 mg tablet Take 1 tablet every day by oral route. 2018 active taking every other night Not Available Not Available Not Available tobramycin 0.3 % eye drops active Not Available Not Available Not Available polymyxin B sulfate 10,000 unit-trime thoprim 1 mg/mL eye drops INSTILL 1 DROP INTO AFFECTED EYE(S) BY OPHTHALM IC ROUTE EVERY 6 HOURS 2018 active Not Available Not Available Not Avai lable orphenadri ne citrate ER 100 mg tablet,ext ended release 09/20 completed Not Available Not Available Not Available methylpred nisolone 4 mg tablets in a dose pack 09/20 completed Not Available Not Available Not Available hydroxyzin e HCl 10 mg tablet TAKE 1 TABLET BY MOUTH EVERY 6 HOURS NEEDED FOR ANXIETY active Not Available Not Available No t Available fluticason e propionate 50 mcg/actuat ion nasal spray,susp ension 1 spray each nostril twice daily for 10 days for muffled hearing, then use as needed 01/14 completed Not Available Not Available Not Available lactulose 10 gram/15 mL oral solution Take 15 mL every day by oral route. 08/29 completed Not Available Not Available Not Available Lactobacil lee acidophilu s 1 billion cell tablet Take 1 tablet every day by oral route. 06/24 completed Not Available Not Available Not Available Vitals Date Recorded Body height Body mass index (BMI) Body weight Heart rate Respiratory rate Body temperature Oxygen saturation Oxygen saturation in Arterial blood by Pulse oximetry Systolic blood pressure Diastolic blood pressure Provider Name and Address Organization Details Last Updated DateTime 8 165.1 cm 52.3 kg/m2 076420. 8 g 87 /min 16 /min 98 [degF] 100 % 100 % 122 mm[Hg] 84 mm[Hg] NITESH Clarke [place] [facility] 8 11:42:50 Date Recorded Body height Body mass index (BMI) Body weight Heart rate Body temperature Oxygen saturation Oxygen saturation in Arterial blood by Pulse oximetry Systolic blood pressure Diastolic blood pressure Provider Name and Address Organization Details Last Updated DateTime 8 165.1 cm 54.9 kg/m2 466183. 84 g 89 /min 98.8 [degF] 99 % 99 % 122 mm[Hg] 78 mm[Hg] Keturah Harkins [facility] 8 15:52:22 Date Recorded Body height Body mass index (BMI) Body weight Heart rate Body temperature Oxygen saturation Oxygen saturation in Arterial blood by Pulse oximetry Respiratory rate Systolic blood pressure Diastolic blood pressure Provider Name and Address Organization Details Last Updated DateTime 9 165.1 cm 55.9 kg/m2 500812. 75 g 91 /min 98.5 [degF] 95 % 95 % 20 /min 120 mm[Hg] 78 mm[Hg] Keturah [facility] 9 10:06:29 Date Recorded Body height Body mass index (BMI) Body weight Heart rate Respiratory rate Oxygen saturation Oxygen saturation in Arterial blood by Pulse oximetry Body temperature Systolic blood pressure Diastolic blood pressure Provider Name and Address Organization Details Last Updated DateTime 9 165.1 cm 55.8 kg/m2 842557. 88 g 105 /min 16 /min 98 % 98 % 97.2 [degF] 118 mm[Hg] 74 mm[Hg] NITESH Clarke [facility] 9 11:50:06 Date Recorded Body height Body mass index (BMI) Body weight Heart rate Respiratory rate Body temperature Oxygen saturation Oxygen saturation in Arterial blood by Pulse oximetry Systolic blood pressure Diastolic blood pressure Provider Name and Address Organization Details Last Updated DateTime 9 165.1 cm 56.6 kg/m2 221155. 84 g 100 /min 16 /min 98 [degF] 98 % 98 % 124 mm[Hg] 84 mm[Hg] NITESH Clarke [facility] 9 08:50:07 Social History Question Answer Notes LastModified by Organizat ion Details LastModified Time Tobacco Smoking Status Never Smoker SAMAN Causey, [facility] 02/22/2015 09:06:03 What Is Your Level Of Alcohol Consumption? Occasional Special Occasions [email or web address] Information not available 02/22/2015 What Is Your Level Of Caffeine Consumption? Occasional Soda 1-2 Per Wk. [email or web address] Information not available 01/14/2018 How Much Tobacco Do You Chew? None [email or web address] Information not available 04/25/2018 What Type Of Diet Are You Following? REGULAR [email or web address] Information not available 02/22/2015 What Is Your Occupation? [employer] Information not available 05/01/2016 Marital Status Information not available 05/01/2016 What Was The Date Of Your Most Recent Tobacco Screening? 08/29/2018 Information not available 09/12/2018 How Much Tobacco Do You Smoke? No [email or web address] Information not available 02/22/2015 General Stress Level Low Low-med [email or web address] Information not available 01/14/2018 Sex: Unknown Functional Status Question Answer Note LastModified by Organizat ion Details LastModified Time What is your exercise level? Occasional Information not available 05/01/2016 Mental Status None recorded. Family History Relationship Description Onset Age of this Age Resolved Age Notes LastModified by Organization Details LastModified Time Mother Migraine [email or web address] Not availa ble 10/29/2015 14:14:17 Father Cerebrovascu lar accident [email or web address] Not available 0 10/29/2015 14:14:17 Father Hypertensive disorder [email or web address] Not available 10/2015 14:14:17 Sister Asthma [email or web address] Not availabl e 10/29/2015 14:14:17 Medical History No medical history recorded. Gynecological History Statement/Question Response Menses Monthly Y Current Control Method None Date of LMP 08/20/2018 LMP Approximate Obstetrics History GPAL:G 0 P 0 0 0 1 Type Value Living 1 Immunizations Vaccine Type Date Status Note Provider Nam e and Address Organization Details Recorded Time Influenza, split virus, quadrivalent, preservative 7 completed Not Available [facility] 03/08/2019 02:34:24 Influenza, split virus, quadrivalent, preservative 8 completed Not Available [facility] 03/08/2019 02:36:56 Influenza, split virus, quadrivalent, preservative 6 completed Not Available [facility] 03/08/2019 02:32:11 Tdap 6 completed Not Available [facility] 03/08/2019 02:46:44 Past Encounters Encounter ID Performer Location Encounter Start Date Encounter Closed Date Diagnosis/Indication Diagnosis SNOMED-CT Code Diagnosis ICD10 Code Diagnosis Note [id number] Edilma Velasco (Adult Med) [address] [place] [address] 02/22/2015 08:48:53 02/23/2015 15:29:33 Adult health examination 165877320 Z00.01 Encouraged well balanced meals, active lifestyle and routine vision/den teresa/manager strategic marketing exams. Anxiety 58230254 F41.1 Will refer to counselor and start citalopram 10 mg daily. FU 3 months, sooner if needed. Active or passive immunization 305457920 Z23 Tdap and flushots today. Obese 537627860 E66.09 Diet and exercise recommende d and encouraged . Labs today screening. [id number] John Garcia Krista (Adult Med) [address] [place] [address] 10/29/2015 13:55:53 11/01/2015 12:56:24 Headache 19987917 R51 [id number] AVANI Eng (Adult Med) [address] [place] [address] 05/01/2016 11:33:24 05/01/2016 14:37:59 Generalized anxiety disorder 85691091 F41.1 uncontroll ed on citalopram 10mg. Increase dose to 20mg, f/u 4 weeks. cautioned that hydroxyzin e may cause drowsiness Tension-type headache 39 3073582 G44.209 patient instructed to start neck exercises; limit Excedrin use due to rebound caffeine MANSFIELD. Try regular NSAID like ibuprofen. Stop sumatripta n since it didn't help.DO NOT take cyclobenza santhosh with hydroxyzin e, can cause drowsiness . Obsessive- compulsive disorder 555366614 F42.9 increase SSRI to see if this helps Morbid obesity 784077795 E66.01 BMI 46.9. dwp diet & exercise, find new daily routine with new nighttime work schedule Hearing disorder 6951169 05 H91.93 muffled sounds comes & goes. [id number] AVANI Eng (Adult Med) [address] [place] [address] 05/22/2016 14:35:48 05/23/2016 09:19:48 Low back pain 764714692 M54.5 dwp that she needs to increase stretching . Presentati on does not seem to be sciatica type of pain. Likely low back strain. take cyclobenza santhosh at night. Body mass index 40+ - severely obese 933812799 Z68.42 recommend weight loss for low back pain. [id number] AVANI Eng (Adult Med) [address] [place] [address] 06/22/2016 15:24:17 06/23/2016 11:01:01 Lumbar radiculopathy 850508409 M54.16 xray neg for bony abnormalit y, she has done 2 PT sessions & feels it is worse. dwp possible herniated disc causing radiculopa thy. If MRI shows this she may benefit from steroid injections which she would consider. No further hydrocodon e if it isn't helping. Avoid NSAIDs while taking prednisone . discussed common side effects including hyperglyce [place], possible BP elevation, GI irritation , hyperactiv ity [id number] AVANI Eng (Adult Med) [address] [place] [address] 07/04/2016 14:30:05 07/05/2016 14:02:02 Backache with radiating pain 609838983 M54.9 patient counseled to return to physical therapy. cont PRN ibuprofen. given note for work to stay home another week while she starts PT, hopefully gets CT done and we can have better idea of work restrictio ns and treatment. No further steroids at this time. [id number] AVANI Eng (Adult Med) [address] [place] [address] 09/20/2016 14:13:02 09/21/2016 09:05:55 Low back pain 744916898 M54.5 Sxs returned, isolated to T12, L1 spine area w/ tenderness on palpation. recommend she restart PT. Repeat oral steroids not recommende d at this time. Recommend continued stretching /exercises at home daily. MRI & CT spine denied in past. Fatigue 64718945 R53.83 dwp that she has signs of HUBERT. [place] score high (scanned). She is agreeable to sleep study. Iron defic iency anemia 81810471 D50.9 long h/o since she was w/ her 6yo son. r/o as cause of fatigue & mood change. Hand pain 80473070 M79.6 43 deQuervain 's tendonitis on right, likely overuse pain on both, but r/o RA or other connective tissue disorder. REcommend wearing wrist brace at night, limit use of hands w/ excessive gripping or carrying if possible. Take ibuprofen PRN Headache 14337714 R51 returned maybe a week before back pain. responds to ibuprofen, refill sent Mood disorder 09256807 F 39 has not felt like herself, not sure if it is from depression or from fatigue. Cont citalopram , discussed w/u of fatigue, she is interested in counseling . [id number] AVANI Eng (Adult Med) [address] [place] [address] 12/07/2016 09:44:16 12/07/2016 14:58:09 Low back pain 868573152 M54.5 persists, somewhat less intense since change of jobs to one that is sedentary. Recommend starting PT again, would like a different facility. Cont PRN ibuprofen Administra tion of influenza vaccine 09714218 Z23 Headache 91086924 R51 persists, muscle relaxers and sumatripta n didn't help. student life dean MANSFIELD likely due to HUBERT, migraines are new in the last year. Will see if HUBERT eval & tx will help MANSFIELD. Obstructiv e sleep apnea syndrome 33790522 G47.33 keep sleep study appt Jan 03, headaches may improve with use of CPAP if she qualifies. Recommend she f/u to re-eval migraines/ headaches after trial of CPAP. Body mass index 40+ - severely obese 783852817 Z68.42 If she qualifies for CPAP based on upcoming sleep study it may help her chronic fatigue and motivate her to start exercise routine for weight loss, will discuss further after sleep study. Anxiety 73371333 F41.9 doing well on citalopram , continue same dose [id number] AVANI Eng (Adult Med) [address] [place] [address] 04/11/2017 11:35:02 04/13/2017 17:07:27 Low back pain 981716048 M54.5 Persists. Never went to PT, asking if other options for pain mgmt other than very expensive chiropract ic treatments . Instructed to cont ibuprofen PRN, work on weight loss and start PT Anxiety 14384537 F41.1 doing well on citalopram , continue same dose 20mg, will give add'l 5 refills. Headache 95720207 R51 Resolved with chiropract ic adjustment s. patient instructed to do daily neck stretches and limit activities that exacerbate neck strain. Body mass index 40+ - severely obese [id number] Z68.43 Marcus lau has gained weight over the Holidays. work on weight loss through diet & exercise. [id number] [facility] (Adult Med) [address] [place] [address] [place] [address] 01/14/2018 15:14:32 01/18/2018 16:33:55 Anxiety [id number] F41.1 cont citalopram , call if worsens. Influenza vaccine needed [id number] 106 Z23 Abdominal pain [id number] R10.32 LLQ pain suspicious for diverticul itis, will tx empiricall y, pt can't afford CT abd/pelvis . f/u if not improved in 2 weeks. Discussed BRAT diet. Bloating symptom [id number] R14.0 follow diet low in cruciferou s vegetables , drink plenty of fluids [id number] [facility] (Adult Med) [address] [place] [address] 04/25/2018 09:50:08 04/26/2018 09:35:55 Anxiety [id number] F41.1 Controlled , cont citalopram Low back pain [id number] M54.5 Persists. PT made her pain worse, didn't follow up with chiropract or. Agreeable to possible joint injections Headache [id number] R51 continues to have at least once a week sxs. had improved w/ chiropract ic adjustment s, but still having at least once a week w/o any known triggers. she has tried NSAIDs, muscle relaxers w/o lasting relief. trial of amitriptyl ine Abdominal bloating [id number] R14.0 possible bacterial overgrowth , start pro-biotic , discussed diet. Body mass index 40+ - severely obese [id number] Z68.43 22 lb weight gain since last year. discussed diet, exercise. [id number] [facility] (Adult Med) [address] [place] [address] 06/24/2018 11:27:45 06/25/2018 09:46:59 Constipation 71821402 K59.00 treat new constipati on sxs, if after 2-3 normal BMs she is still having back/flank pain, then call and we can order CT abd/pelvis r/o kidney stones Left flank pain [id number] 9 R10.9 treat new constipati on sxs, if after 2-3 normal BMs she is still having back/flank pain, then call and we can order CT abd/pelvis r/o kidney stonesdrin k plenty of water. Reviewed UA from 06/20, no infection or blood. [id number] [facility] (Adult Med) [address] [place] [address] 08/29/2018 08:39:54 08/30/2018 08:14:56 Allergic conjunctivitis [id number] H10.13 can't rule out bacterial, will send abx eye drops, cont anti-hista mine, start flonase. Limit sudafed, may cause palpitatio ns Health Concerns Section Related Observation LastModified by Organization Detai ls LastModified Time None Recorded Concern Status LastModified by Organization Details LastModified Time None Recorded Advance Directives Directive None Recorded Payers Encounter Date Sequence Insurance Name Policy Number Policy Williamson Covered Member ID Williamson Member ID Guarantor Name 04/11/2017 1 [facility] (MEDICAID HMO) [id number] Gabby Dunlap [id number] Gabby Dunlap 01/14/2018 1 *SELF PAY* Mojgan Dunlap 04/25/2018 1 [place] [id number] Gabby Dunlap [id number] Gabby Dunlap 06/24/2018 1 [place] [id number] 2 Gabby Dunlap [id number] Gabby Dunlap 08/29/2018 1 [place] [id number] 2 Gabby Dunlap [id number] Gabby Dunlap Notes Date Note Type Note Provider Name and Address Organization Details Recorded Time 04/11/2017 text/html Right sided low Back pain persists, intermittent radiation into right buttock/hip area; no assoc numbness or tingling. Seeing chiropractor who did spine x-ray & adjustments to C-spine helped [place]. 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 Before she invests in $3000 for adjustments, wanted to explore other options. She restarted ibuprofen. cyclobenzaprine made her too drowsy. Anxiety/mood: doing well on citalopram, would like to have add'l refills, gets only one month at a time and pharmacy has to call PCP monthly. Leah Herman PA-C Attn: Accounting,[address] [facility], [place], [address], [facility] 04/11/2017 12:48:42 01/14/2018 text/html Lost insurance a nd has been off her meds. Some withdrawal sxs, mood a little down. NO SI OR HI. FU. pt needing anxiety refill. pt thinks she may have acid reflux-uncontrollable burping. flu shot.Trying to eat bettter. Burping enought that co-workers are mentioning it. Eats breakfast then lunch around noon and not hungry rest of day, snack before leaving work.NO heartburn, more of odd pain in stomach then upper throat pain, w/ burping food comes up into throat and then goes back down. BMs normal. No OTC meds. Occasional Rx ibuprofen, maybe once a week.Increased stomach cramping, at times pain is severe LLQ pain x 1 mo. will get chills but no fevers. Leah Herman PA-C Attn: Accounting,[address] [facility], [place], [address], [facility] 04/02/2018 22:48:24 04/25/2018 text/html Abdominal went a way w/ metronidazole but came back 2 days after completing med. bloating persists at times not related to eating. BMs intermittent diarrhea and constipation, but has to eat almost after every meal. Only occ constipation. No known food allergies. [place] about once a week, the other day at work intense and couldn't go to dark room. Ibuprofen sometimes helps. low back pain, saw PT, that hurt more than it helped. Saw chiropractor and told she had abnormal curvature or loss of curvature, but didn't go back for add'l tx. She has not been doing any stretches or exercises on consistent basis Leah Herman PA-C Attn: Accounting,[address] [facility], [place], [address], [facility] 04/25/2018 11:13:47 06/24/2018 text/html left flank pain, started Sunday, sharp, intense w/ movement. some sense of feeling a need to void, but not much volume at times. No dysuria. Blood last week prior to UA done 06/20. Leah Herman PA-C Attn: Accounting,[address] [place], [address], [facility] 06/24/2018 12:04:07 08/29/2018 text/html Upper Respirator y SymptomsReported bypatient.Location:hea d; chest; throat Quality:productive cough;colored phlegm;congested Severity:mild Duration:days Onset/Timing:sudden Context:no sick contacts; no foreign travel; non-smoker Associated Symptoms:no shortness of breath; no wheezing; no change in number of pillows needed to sleep at night; no sweats; no fever; no significant weight gain; no significant weight loss; no morning cough; no vomiting; no diarrhea; no rash; no nausea;yellow sputum;sore throatNotes:Allergy sxs have been bad in last several weeks, loratadine usually helps, but not lately. New dog. Taking Sudafed cold & sinus currently. left eye redness & drainage for last few days and this AM woke up with right eye red and crusted. No one else at home w/ similar sxs Leah Herman PA-C Attn: Accounting,[address] [facility], [place], [address], [facility] 08/29/2018 09:24:26 OBGyn Episode No OBEpisode recorded.
== END 2024-04-01 15:34 | disposition home or self-care (01) ==
PROVIDERS: Emergency Provider Nurse Practitioner
DX: O99.512 Diseases of the respiratory system complicating pregnancy, second trimester (principal); Z3A.24 24 weeks gestation of pregnancy; J06.9 Acute upper respiratory infection, unspecified; Z20.822 Contact with and (suspected) exposure to COVID-19; O99.612 Diseases of the digestive system complicating pregnancy, second trimester; K21.9 Gastro-esophageal reflux disease without esophagitis; O99.340 Other mental disorders complicating pregnancy, unspecified trimester; F41.9 Anxiety disorder, unspecified
CPT/HCPCS: 87426; 87804; 99213; G0463